=== PATIENT | male | born 1960 | race Caucasian/White ===

== ENCOUNTER 2018-04-24 11:41 | Inpatient (IN) | payer OTHER ==
[2018-04-24 12:22] VITALS: BMI 39.0
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
[2018-04-24] MEDS ORDERED: MAG HYDROX/AL HYDROX/SIMETH 30 ML UNIT-DOSE CUP PO PRN (13:58)
[2018-04-24] MEDS ORDERED: MAGNESIUM CITRATE 300 ML BOTTLE PO PRN (13:58)
[2018-04-24] MEDS ORDERED: MAGNESIUM HYDROX 2400MG/30ML ORAL SUSPENSION 30 ML CUP PO PRN (13:58)
[2018-04-24] MEDS ORDERED: P-EPHED 60MG/TRIPROLIDI 2.5MG TABLET PO PRN (13:58)
[2018-04-24] MEDS ORDERED: IBUPROFEN 400 MG TABLET (FP) PO PRN (13:58)
[2018-04-24] MEDS ORDERED: MENTHOL/PHENOL 1 EACH UD MM PRN (13:58)
[2018-04-24] MEDS ORDERED: guaiFENesin/D-METHORPHAN HB 10 ML UNIT-DOSE CUPS PO PRN (13:58)
[2018-04-24] MEDS ORDERED: LOPERAMIDE HCL 2 MG CAPSULE PO PRN (13:58)
[2018-04-24] MEDS ORDERED: ALBUTEROL SO4 8 GM HFA INHALER IH PRN (14:01)
[2018-04-24] MEDS ORDERED: chlordiazePOXIDE HCL 25 MG CAPSULE PO PRN (15:26)
[2018-04-24] MEDS: chlordiazePOXIDE HCL 25 MG CAPSULE PO SCH ×2 (17:10→22:09)
[2018-04-24] MEDS: ACETAMINOPHEN 325 MG TABLET (FP) PO PRN ×2 (17:17→22:11)
[2018-04-24] MEDS ORDERED: ALBUTEROL SO4 0.083% IH SOL 2.5 MG/3 ML VIAL.NEB. NEB PRN (19:45)
--- NOTE | 2018-04-24 20:35 | PN ---
[facility] Progress Note (SOAP) Subjective: received call in [facility] for above patient , per RN complaining of chest pain , VSS O2sat 97% on RA . EKG ordered . Upon arrival to patient's room, patient resting in bed , complains of shortness of breath with lying down , states has history of sleep apnea and was taking Seroquel and Gabapentin for sleep . MR reviewed- h/o asthma , HTN . Objective: O2 95% on RA , patient ambulating freely in hallway , no distress CV RRR S1S2 no m/r/t Resp : lungs CTA b/l n w/r/r , no accessory muscle use 04/24/18 20:31 Vital Signs - 24 hr 04/24/18 04/24/18 12:18 18:03 Temperature 97.7 F 98.2 F Pulse Rate 79 88 Respiratory 18 20 Rate Blood Pressure 149/85 156/86 EKG - NSR R 62 04/24/18 20:33 04/24/18 20:35 Plan: Albuterol nebulizer ordered and administered with good symptomatic relief, patient states he is feeling better, requesting sleeping meds : advised of prn Vistaril, scheduled to see psychiatry in the a.m. Advised pt to see RN for any further symptoms. Verbalizes understanding, agreeable w/ POC .
[2018-04-24] MEDS ORDERED: MELATONIN 5 MG TABLETS PO PRN (22:00)
[2018-04-24] MEDS: THIAMINE HCL 100 MG TABLET (FP) PO SCH (22:09)
[2018-04-25] MEDS: chlordiazePOXIDE HCL 25 MG CAPSULE PO SCH ×4 (06:52→22:04)
[2018-04-25] MEDS: PRENATAL VITAMINS W/ FOLIC ACID TABLET (FP) PO SCH (10:31)
[2018-04-25] MEDS: amLODIPine BESYLATE 5 MG TABLET (FP) PO SCH (10:31)
[2018-04-25 11:09] LABS: HEMATOCRIT 38.2 % (35.4-49); HEMOGLOBIN 13.6 GM/dL (11.7-16.9); MCH 30.5 pg (25.7-33.7); MCHC 35.5 g/dl (32.0-35.9); MEAN CELL VOLUME 85.9 fl (80-96); MEAN PLT VOLUME 9.4 fl (7.5-11.1); PLATELET COUNT 66 K/MM3 (134-434); RBC 4.44 M/mm3 (4.00-5.60); RDW 16.4 % (11.9-15.9); WHITE BLOOD COUNT 3.6 K/mm3 (4.0-10.0)
[2018-04-25] MEDS ORDERED: FLU VACCINE QUAD 60 MCG/0.5 ML (MDV 18-19) IM ONE (12:00)
[2018-04-25] MEDS ORDERED: PNEUMOC 13-VAL CONJ-DIP CRM/PF 0.5 ML DISP.SYRIN IM ONE (12:00)
[2018-04-25] MEDS ORDERED: PNEUMOCOCCAL 23 VACCINE 0.5 ML VIAL IM ONE (12:00)
--- NOTE | 2018-04-25 12:11 | PN ---
S CIWA - CIWA Score Nausea/Vomitin Muscle Tremors: 2 Anxiety: 3 Agitation: 2 Paroxysmal Sweats: 2 Orientation: 0-Oriented Tacttile Disturbances: 1-Very Mild Itch/Numbness Auditory Disturbances: 1-Very Mild Visual Disturbances: 0-None Headache: 1-Very Mild CIWA-Ar Total Score: 14 S Progress Note (SOAP) Subjective: Fatigue, interrupted sleep,epigastric pain and anxiety Objective: 04/25/18 12:08 Vital Signs 04/25/18 04/25/18 06:50 09:17 Temperature 97.5 F L 96.4 F L Pulse Rate 72 79 Respiratory 20 16 Rate Blood Pressure 146/95 158/89 Laboratory Last Values WBC 3.6 K/mm3 (4.0-10.0) L 04/25/18 05:35 RBC 4.44 M/mm3 (4.00-5.60) 04/25/18 05:35 Hgb 13.6 GM/dL (11.7-16.9) 04/25/18 05:35 Hct 38.2 % (35.4-49) 04/25/18 05:35 MCV 85.9 fl (80-96) 04/25/18 05:35 MCH 30.5 pg (25.7-33.7) 04/25/18 05:35 MCHC 35.5 g/dl (32.0-35.9) 04/25/18 05:35 RDW 16.4 % (11.9-15.9) H 04/25/18 05:35 Plt Count 66 K/MM3 (134-434) L 04/25/18 05:35 MPV 9.4 fl (7.5-11.1) 04/25/18 05:35 Manual Slide Review 04/25/18 05:35 Platelet Comment No clotting detected 04/25/18 05:35 RPR Titer Nonreactive (NONREACTIVE) 04/25/18 05:35 CBC pending, chemistry pending Had asthma exacerbation last night, occasional SOB r/t asthma Assessment: 04/25/18 12:10 Withdrawal sx Asthma with exacerbation Plan: Continue detox Continue nebulizer treatments
[2018-04-25 12:16] LABS: ALK PHOS 76 U/L (45-117); ANION GAP 12 MMOL/L (8-16); BILIRUBIN,TOTAL 1.4 mg/dL (0.2-1); BLOOD UREA NITROGEN 5 mg/dL (7-18); CHLORIDE 98 mmol/L (98-107); CO2 29 mmol/L (21-32); CREATININE 0.7 mg/dL (0.55-1.3); GLUCOSE,RANDOM 144 mg/dL (74-106); POTASSIUM 3.1 mmol/L (3.5-5.1); SGOT/AST 65 U/L (15-37); SGPT/ALT 41 U/L (13-61); SODIUM 139 mmol/L (136-145); TOT PROT 7.3 g/dl (6.4-8.2)
--- NOTE | 2018-04-25 13:29 | CONSULT ---
[facility] Psychiatric Consult - Data Date of interview: 04/25/18 Admission source: [facility] Identifying data: First admission to [facility] for this 57 y/o male seeking detoxification treatment on for alcohol dependence. Patient is single without dependents, homeless, unemployed and supported on SSI benefits. Substance Abuse History: Confirmed by the patient in this interview. Details in current [facility] report : Smoking history: Former smoker. Have you smoked in the past 12 months: No. Aproximately how many cigarettes per day: 0. If you are a former smoker, when did you quit?: 1997. Cigars Per Day: 0. Hx Chewing Tobacco Use: No. Initiated information on smoking cessation: Yes. 'Breaking Loose' booklet given: 04/24/18. - Substance & Tx. History. Hx Alcohol Use: Yes. Hx Substance Use: Yes. Substance Use Type: Alcohol. Hx Substance Use Treatment: Yes ([facility] ). - Substances Abused. Alcohol. Route: Oral. Frequency: Daily. Amount used: vodka 2 pts./day. Age of first use: 10. Date of Last Use: 04/23/18 Medical History: Arthritis (knees), hypertension, bronchial asthma and a history of withdrawal-related seizures. Psychiatric History: Patient endorses a history of multiple psychiatric hospitalizations ([facility]). Diagnosed with Bipolar Disorder and MDD with psychotic features (self-report). Mr Jackson declares maintenance treatment on a regimen of sertraline 100 mg/day + neurontin 600 mg/tid + prazosin 2m/hs + seroquel 400 mg/hs. NOT TAKEN for at least one month (patient' s own report). No Psychiatric OPD providers (refills issued by primary care provider). Patient is known to [facility] and [facility]. Admits to a history of suicide attempts via self-mutilation ( scars visible on forearms). Physical/Sexual Abuse/Trauma History: Patient denies. Additional Comment: Drug Screen is negative. 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 (4) Insomnia Current Visit: Yes Status: Acute (5) Non-compliant patient Current Visit: Yes Status: Chronic - Initial Treatment Plan Initial Treatment Plan: Psychoeducation. Detoxification. Sleep hygiene. AA meetings. Relapse prevention (measures) : naltrexone, acamprosate, 12 step groups, psychotherapy discussed with the patient. Support and reassurance provided. Medications reviewed. Pharmacy claims surveyed : refills issued on for seroquel 400 mg/hs + prazosin 2 mg/hs + zoloft 100 mg/day + gabapentin 600 mg/tid at the [facility] Regimen is modified as follows : seroquel 200 mg po hs (reduced) + zoloft 100 mg po daily. Prazosin and gabapentin held for now. Observe for oversedation. If no adverse events, seroquel is to be titrated and gabapentin + prazosin re-instated. Unit psychiatrist will follow.
[2018-04-25] MEDS: ACETAMINOPHEN 325 MG TABLET (FP) PO PRN ×2 (17:51→22:06)
--- NOTE | 2018-04-25 21:16 | EKG ---
Test Reason : Blood Pressure : / mmHG Vent. Rate : 062 BPM Atrial Rate : 062 BPM P-R Int : 166 ms QRS Dur : 094 ms QT Int : 416 ms P-R-T Axes : 017 -04 024 degrees QTc Int : 422 ms SINUS RHYTHM WITH FUSION COMPLEXES OTHERWISE NORMAL ECG NO PREVIOUS ECGS AVAILABLE Confirmed by JAIMIE MORA, AIMEE ([id number]) on 04/25/2018 9:15:38 PM Referred By: Confirmed By:AIMEE ETIENNE MD
[2018-04-25] MEDS: QUEtiapine FUMARATE 200 MG TABLET PO SCH (22:04)
[2018-04-25] MEDS: THIAMINE HCL 100 MG TABLET (FP) PO SCH (22:04)
[2018-04-26] MEDS: ACETAMINOPHEN 325 MG TABLET (FP) PO PRN ×3 (06:34→22:06)
[2018-04-26] MEDS: chlordiazePOXIDE HCL 25 MG CAPSULE PO SCH ×2 (06:34→10:41)
[2018-04-26] MEDS: PRENATAL VITAMINS W/ FOLIC ACID TABLET (FP) PO SCH (10:41)
[2018-04-26] MEDS: amLODIPine BESYLATE 5 MG TABLET (FP) PO SCH (10:41)
[2018-04-26] MEDS: SERTRALINE HCL 50 MG TABLET (FP) PO SCH (10:41)
--- NOTE | 2018-04-26 15:07 | PN ---
[facility] CIWA - CIWA Score Nausea/Vomitin-No Nausea/No Vomiting Muscle Tremors: 3 Anxiety: 1-Mildly Anxious Agitation: 3 Paroxysmal Sweats: 1-Minimal Palms Moist Orientation: 0-Oriented Tacttile Disturbances: 0-None Auditory Disturbances: 0-None Visual Disturbances: 0-None Headache: 2-Mild CIWA-Ar Total Score: 10 S Progress Note (SOAP) Subjective: tremor sweat restlessness requests to follow up with the psychiatrist that taking seroquel 400 mg daily at home Objective: 04/26/18 15:10 Vital Signs Temperature 97.9 F 04/26/18 09:49 Pulse Rate 83 04/26/18 09:49 Respiratory Rate 16 04/26/18 09:49 Blood Pressure 139/87 04/26/18 09:49 O2 Sat by Pulse Oximetry (%) Laboratory Last Values WBC 3.6 K/mm3 (4.0-10.0) L 04/25/18 05:35 RBC 4.44 M/mm3 (4.00-5.60) 04/25/18 05:35 Hgb 13.6 GM/dL (11.7-16.9) 04/25/18 05:35 Hct 38.2 % (35.4-49) 04/25/18 05:35 MCV 85.9 fl (80-96) 04/25/18 05:35 MCH 30.5 pg (25.7-33.7) 04/25/18 05:35 MCHC 35.5 g/dl (32.0-35.9) 04/25/18 05:35 RDW 16.4 % (11.9-15.9) H 04/25/18 05:35 Plt Count 66 K/MM3 (134-434) L 04/25/18 05:35 MPV 9.4 fl (7.5-11.1) 04/25/18 05:35 Manual Slide Review 04/25/18 05:35 Platelet Comment No clotting detected 04/25/18 05:35 Sodium 139 mmol/L (136-145) 04/25/18 05:35 Potassium 3.1 mmol/L (3.5-5.1) L 04/25/18 05:35 Chloride 98 mmol/L (98-107) 04/25/18 05:35 Carbon Dioxide 29 mmol/L (21-32) 04/25/18 05:35 Anion Gap 12 MMOL/L (8-16) 04/25/18 05:35 BUN 5 mg/dL (7-18) L 04/25/18 05:35 Creatinine 0.7 mg/dL (0.55-1.3) 04/25/18 05:35 Creat Clearance w eGFR > 60 (>60) 04/25/18 05:35 Random Glucose 144 mg/dL (74-106) H 04/25/18 05:35 Calcium 8.0 mg/dL (8.5-10.1) L 04/25/18 05:35 Total Bilirubin 1.4 mg/dL (0.2-1) H 04/25/18 05:35 AST 65 U/L (15-37) H 04/25/18 05:35 ALT 41 U/L (13-61) 04/25/18 05:35 Alkaline Phosphatase 76 U/L (45-117) 04/25/18 05:35 Total Protein 7.3 g/dl (6.4-8.2) 04/25/18 05:35 Albumin 4.0 g/dl (3.4-5.0) 04/25/18 05:35 RPR Titer Nonreactive (NONREACTIVE) 04/25/18 05:35 lab noted low K+ low Platellet Assessment: 04/26/18 15:13 withdrawal sx hypokalemia low platellet Plan: continue detox potassium supplement d/c motrim
[2018-04-26] MEDS: chlordiazePOXIDE 5 MG CAPSULE PO SCH ×2 (17:38→22:06)
[2018-04-26] MEDS: POTASSIUM CHLORIDE ORAL LIQUID 20 MEQ/15 ML PO SCH ×2 (17:38→22:05)
[2018-04-26] MEDS: THIAMINE HCL 100 MG TABLET (FP) PO SCH (22:05)
[2018-04-26] MEDS: QUEtiapine FUMARATE 200 MG TABLET PO SCH (22:06)
[2018-04-27] MEDS: chlordiazePOXIDE 5 MG CAPSULE PO SCH ×2 (06:56→10:17)
[2018-04-27] MEDS: ACETAMINOPHEN 325 MG TABLET (FP) PO PRN ×3 (06:58→22:55)
--- NOTE | 2018-04-27 10:14 | PN ---
[facility] Progress Note (SOAP) Subjective: itchy dry skin between my thighs sweats anxiety Objective: 04/27/18 10:14 Vital Signs Temperature 98.0 F 04/27/18 09:38 Pulse Rate 95 H 04/27/18 09:38 Respiratory Rate 18 04/27/18 09:38 Blood Pressure 146/88 04/27/18 09:38 O2 Sat by Pulse Oximetry (%) aaox3 ambulating no acute distress Assessment: 04/27/18 10:15 mild withdrawal Plan: continue detox increase fluids psych ordered for revisit of his medication ABX ointment ordered d/c in am
[2018-04-27] MEDS: PRENATAL VITAMINS W/ FOLIC ACID TABLET (FP) PO SCH (10:16)
[2018-04-27] MEDS: SERTRALINE HCL 50 MG TABLET (FP) PO SCH (10:16)
[2018-04-27] MEDS: amLODIPine BESYLATE 5 MG TABLET (FP) PO SCH (10:17)
[2018-04-27] MEDS: TRIAMCINOLONE ACET 0.1% OINT 15 GM TUBE TP SCH ×4 (10:54→22:52)
[2018-04-27] MEDS: POTASSIUM CHLORIDE ORAL LIQUID 20 MEQ/15 ML PO SCH ×2 (10:55→22:22)
[2018-04-27] MEDS: GABAPENTIN 300 MG CAPSULE (FP) PO SCH ×2 (13:37→22:16)
--- NOTE | 2018-04-27 14:41 | PN ---
Psychiatric Progress Note Vital Signs: Vital Signs Period Temp Pulse Resp BP Sys/Sloan Pulse Ox Last 24 Hr 96.5 F-98.6 F 83-95 16-18 113-146/65-91 Date of Session: 04/27/18 Chief Complaint:: My medications HPI: Patient reports taking prior to admission: Seroquel 400mg po qhs. Zoloft 100mg poqd. Prazosin 2mg po qhs. Patient askinng to satrt his preadmission dosages. Current Medications: Active Medications Generic Name Dose Route Start Last Admin Trade Name Freq PRN Reason Stop Dose Admin Acetaminophen 650 mg 04/24/18 13:58 04/27/18 06:58 Tylenol - PO 650 mg Q4H PRN Administration FEVER Al Hydroxide/Mg Hydroxide 30 ml 04/24/18 13:58 04/24/18 20:25 Mylanta Oral Suspension - PO 30 ml Q6H PRN Administration DYSPEPSIA Albuterol Sulfate 2 puff 04/24/18 14:01 Ventolin Hfa Inhaler - IH Q4H PRN ASTHMA Albuterol Sulfate 1 amp 04/24/18 19:45 04/25/18 09:22 Ventolin 0.083% Nebulizer Soln - NEB 1 amp Q4H PRN Administration SHORT OF BREATH/WHEEZING Amlodipine Besylate 5 mg 04/25/18 10:00 04/27/18 10:17 Norvasc - PO 5 mg DAILY ELVIA Administration Chlordiazepoxide HCl 25 mg 04/24/18 15:26 04/25/18 03:28 Librium - PO 04/27/18 15:25 25 mg Q4H PRN Administration WITHDRAWAL(CONT SUBST) Chlordiazepoxide HCl 10 mg 04/27/18 17:00 Librium - PO 04/28/18 11:01 [id number] ELVIA Eucalyptus/Menthol/Phenol/Sorbitol 1 each 04/24/18 13:58 Cepastat Lozenge - MM Q4H PRN SORE THROAT Gabapentin 600 mg 04/27/18 14:00 04/27/18 13:37 Neurontin - PO 600 mg TID ELVIA Administration Guaifenesin 10 ml 04/24/18 13:58 Robitussin Dm - PO Q6H PRN COUGH Loperamide HCl 4 mg 04/24/18 13:58 Imodium - PO Q6H PRN DIARRHEA Magnesium Citrate 300 ml 04/24/18 13:58 Citroma - PO Q48H PRN CONSTIPATION Magnesium Hydroxide 30 ml 04/24/18 13:58 Milk Of Magnesia - PO DAILY PRN CONSTIPATION Melatonin 5 mg 04/24/18 22:00 Melatonin PO HS PRN INSOMNIA Potassium Chloride 40 meq 04/26/18 16:30 04/27/18 10:55 Potassium Chloride Oral Liquid PO 40 meq BID ELVIA Administration Multivit/Folic Acid/Iron 1 tab 04/25/18 10:00 04/27/18 10:16 Vitamins (Sjr) - PO 1 tab DAILY ELVIA Administration Pseudoephedrine/Triprolidine 1 combo 04/24/18 13:58 Actifed - PO TID PRN NASAL CONGESTION Quetiapine Fumarate 200 mg 04/25/18 22:00 04/26/18 22:06 Seroquel - PO 200 mg HS ELVIA Administration Sertraline HCl 100 mg 04/26/18 10:00 04/27/18 10:16 Zoloft - PO 100 mg DAILY ELVIA Administration Thiamine HCl 100 mg 04/24/18 22:00 04/26/18 22:05 Vitamin B1 - PO 100 mg HS ELVIA Administration Triamcinolone Acetonide 1 applic 04/27/18 10:00 04/27/18 13:38 Aristocort 0.1% Ointment - TP 1 applic QID ELVIA Administration Medication(s) Change(s): Seroquel 300mg po qhs. Zoloft 100mg poqd. Prazosin 2mg po qhs Mental Status Exam - Mental Status Exam Alert and Oriented to: Person Cognitive Function: Fair Patient Appearance: Unkempt Mood: Anxious Affect: Mood Congruent Patient Behavior: Cooperative Speech Pattern: Appropriate Voice Loudness: Mildly Soft/Quiet Thought Process: Circumstantial, Goal Oriented Thought Disorder: Being Controlled Hallucinations: Denies Suicidal Ideation: Denies Homicidal Ideation: Denies Insight/Judgement: Fair Sleep: Difficulty falling asleep Appetite: Weight gain Muscle strength/Tone: Mild Hypotonicity Gait/Station: Shuffling Additional Comments: Seroquel 300mg po qhs. Zoloft 100mg poqd. Prazosin 2mg po qhs Psychiatric Treatment Plan - Problem List (1) HTN (hypertension) Current Visit: Yes Qualifiers: Hypertension type: essential hypertension Qualified Code(s): I10 - Essential (primary) hypertension (2) Right knee pain Current Visit: Yes Qualifiers: Chronicity: acute Qualified Code(s): M25.561 - Pain in right knee (3) Substance induced mood disorder Current Visit: Yes (4) Uncomplicated alcohol withdrawal Current Visit: Yes (5) Asthma Current Visit: Yes Qualifiers: Asthma severity: mild Asthma persistence: intermittent Asthma complication type: with acute exacerbation Qualified Code(s): J45.21 - Mild intermittent asthma with (acute) exacerbation (6) Bipolar disorder Current Visit: Yes Comment: Reported by the patient. (7) Chronic alcoholism Current Visit: Yes (8) Obesity Current Visit: Yes Qualifiers: Obesity type: due to excess calories Body mass index: unspecified BMI (9) Schizophrenia Current Visit: Yes Qualifiers: Schizophrenia type: unspecified Qualified Code(s): F20.9 - Schizophrenia, unspecified (10) Withdrawal seizures Current Visit: Yes Initial treatment plan: Seroquel 300mg po qhs. Zoloft 100mg poqd. Prazosin 2mg po qhs
[2018-04-27] MEDS: chlordiazePOXIDE HCL 10 MG CAPSULE PO SCH ×2 (17:30→22:17)
[2018-04-27] MEDS ORDERED: QUEtiapine FUMARATE 300 MG TABLET PO SCH (22:00)
[2018-04-27] MEDS ORDERED: PRAZOSIN HCL 1 MG CAPSULE PO SCH (22:00)
[2018-04-27] MEDS: THIAMINE HCL 100 MG TABLET (FP) PO SCH (22:24)
[2018-04-28] MEDS: GABAPENTIN 300 MG CAPSULE (FP) PO SCH ×2 (05:44→15:02)
[2018-04-28] MEDS: chlordiazePOXIDE HCL 10 MG CAPSULE PO SCH ×2 (05:44→10:29)
[2018-04-28 09:52] VITALS: BP 138/87; PULSE 91; TEMP 98.8
[2018-04-28] MEDS: amLODIPine BESYLATE 5 MG TABLET (FP) PO SCH (10:28)
[2018-04-28] MEDS: SERTRALINE HCL 50 MG TABLET (FP) PO SCH (10:28)
[2018-04-28] MEDS: PRENATAL VITAMINS W/ FOLIC ACID TABLET (FP) PO SCH (10:28)
[2018-04-28] MEDS: POTASSIUM CHLORIDE ORAL LIQUID 20 MEQ/15 ML PO SCH (10:29)
[2018-04-28] MEDS: TRIAMCINOLONE ACET 0.1% OINT 15 GM TUBE TP SCH ×2 (10:30→15:03)
--- NOTE | 2018-04-28 12:39 | DS ---
[facility] Detox Discharge Summary Admission Date: 04/24/18 Discharge Date: 04/28/18 - History Present History: Alcohol Dependence - Physical Exam Results Vital Signs: Vital Signs Temperature 98.8 F 04/28/18 09:52 Pulse Rate 91 H 04/28/18 09:52 Respiratory Rate 18 04/28/18 09:52 Blood Pressure 138/87 04/28/18 09:52 O2 Sat by Pulse Oximetry (%) - Treatment Hospital Course: Detox Protocol Followed, Detoxed Safely, Responded well, Discharged Condition Good, Rehab Referral Accepted - Medication Discharge Medications: Ambulatory Orders Albuterol Sulfate [Proventil HFA Inhaler -] 1 - 2 inh PO QID 04/24/18 Amlodipine Besylate 5 mg PO DAILY 04/24/18 Gabapentin [Neurontin] 600 mg PO TID 04/24/18 Prazosin HCl [Minipress] 2 mg PO HS 04/24/18 Quetiapine Fumarate [Seroquel -] 400 mg PO HS 04/24/18 Quetiapine Fumarate [Seroquel] 100 mg PO DAILY 04/24/18 Prazosin HCl [Minipress -] 2 mg PO HS #30 capsule 04/27/18 Quetiapine Fumarate [Seroquel -] 300 mg PO HS #30 tablet 04/27/18 Sertraline HCl [Zoloft] 100 mg PO DAILY #30 tablet 04/27/18 - Diagnosis (1) HTN (hypertension) Current Visit: Yes Status: Chronic Qualifiers: Hypertension type: essential hypertension Qualified Code(s): I10 - Essential (primary) hypertension (2) Insomnia Current Visit: Yes Status: Acute (3) Right knee pain Current Visit: Yes Status: Chronic Qualifiers: Chronicity: chronic Qualified Code(s): M25.561 - Pain in right knee; G89.29 - Other chronic pain (4) Substance induced mood disorder Current Visit: Yes Status: Acute (5) Uncomplicated alcohol withdrawal Current Visit: Yes Status: Chronic (6) Asthma Current Visit: Yes Status: Chronic Qualifiers: Asthma severity: mild Asthma persistence: intermittent Asthma complication type: with acute exacerbation Qualified Code(s): J45.21 - Mild intermittent asthma with (acute) exacerbation (7) Bipolar disorder Current Visit: Yes Status: Chronic (8) Non-compliant patient Current Visit: Yes Status: Chronic (9) Obesity Current Visit: Yes Status: Chronic Qualifiers: Obesity type: due to excess calories Body mass index: unspecified BMI (10) Schizophrenia Current Visit: Yes Status: Chronic Qualifiers: Schizophrenia type: unspecified Qualified Code(s): F20.9 - Schizophrenia, unspecified (11) Withdrawal seizures Current Visit: Yes Status: Suspected - AMA Did Patient Leave Against Medical Advice: No (referred to inpatient rehab)
== END 2018-04-28 03:16 | disposition other institution (70) | DRG 775 ==
LOC: YASAS 11:41 → Y6N 14:50
PROC: HZ2ZZZZ Detoxification Services for Substance Abuse Treatment (ICD-10-PCS; principal; 2018-04-24)
DX: F10.230 Alcohol dependence with withdrawal, uncomplicated (principal); F31.9 Bipolar disorder, unspecified; F19.24 Other psychoactive substance dependence with psychoactive substance-induced mood disorder; F20.9 Schizophrenia, unspecified; E87.6 Hypokalemia; I10 Essential (primary) hypertension; J45.21 Mild intermittent asthma with (acute) exacerbation; G47.00 Insomnia, unspecified; G40.509 Epileptic seizures related to external causes, not intractable, without status epilepticus; E66.09 Other obesity due to excess calories; Z68.39 Body mass index [BMI] 39.0-39.9, adult; Z88.6 Allergy status to analgesic agent; Z91.5 Personal history of self-harm; Z91.19 Patient's noncompliance with other medical treatment and regimen
CPT/HCPCS: 36415; 80053; 84132; 85027; 86593; 93005; 93010; 94640

== ENCOUNTER 2018-04-28 15:24 | Inpatient (IN) | payer OTHER ==
--- NOTE | 2018-04-28 16:08 | HP ---
Psychiatrist Admission - Data Date of interview: 04/28/18 Admission source: Transfer from [address] [place] [address] Identifying data: First admission to [address] for this 57 y/o male who completed detoxification treatment on [address] [place] [address]. Issues : alcohol dependence co-morbid with Bipolar Disorder. Patient is single without dependents, homeless, unemployed and supported on SSI benefits. Medical History: Arthritis (knees), hypertension, liver problems (cirrhosis), bronchial asthma and a history of withdrawal-related seizures. Psychiatric History: History taken from patient on admission to [address] [place] [address] on . No changes since that encounter : history of multiple psychiatric hospitalizations ([facility]). Diagnosed with Bipolar Disorder and MDD with psychotic features (self-report). Mr Renetta declares maintenance treatment on a regimen of sertraline 100 mg/day + neurontin 600 mg/tid + prazosin 2m/hs + seroquel 400 mg/hs. NOT TAKEN for at least one month (patient' s own report). No Psychiatric OPD providers (refills issued by primary care provider). Patient is known to [address], [facility] and [facility]. Admits to a history of suicide attempts via self-mutilation ( scars visible on forearms). Physical/Sexual Abuse/Trauma History: Patient denies. Additional Comment: Profile of substance abuse. As follows : Smoking history: Former smoker. Have you smoked in the past 12 months: No. Aproximately how many cigarettes per day: 0. If you are a former smoker, when did you quit?: 1997. Cigars Per Day: 0. Hx Chewing Tobacco Use: No. Initiated information on smoking cessation: Yes. 'Breaking Loose' booklet given: 04/24/18. - Substance & Tx. History. Hx Alcohol Use: Yes. Hx Substance Use: Yes. Substance Use Type: Alcohol. Hx Substance Use Treatment: Yes ([facility] ). - Substances Abused. Alcohol. Route: Oral. Frequency: Daily. Amount used : vodka 2 pts./day. Age of first use: 10. Date of Last Use: 04/23/18. Drug Screen is negative on admission to [address] [place] [address] (04/25/18). Allergies/Adverse Reactions: Allergies Allergy/AdvReac Type Severity Reaction Status Date / Time aspirin AdvReac Intermediate Nausea Verified 04/24/18 13:51 - Substance Abuse/Tx History Hx Alcohol Use: Yes (since age 10) Hx Substance Use: Yes Substance Use Type: Alcohol (consumes 2 pints of vodka daily) Hx Substance Use Treatment: Yes (in [facility] Mental Status Exam - Mental Status Exam Alert and Oriented to: Time, Place, Person Cognitive Function: Grossly Intact Patient Appearance: Well Groomed (obese, edentulous) Mood: Anxious, Apprehensive Affect: Mood Congruent, Constricted Patient Behavior: Appropriate, Cooperative Speech Pattern: Clear (in lao) Voice Loudness: Normal Thought Process: Goal Oriented Thought Disorder: Not Present Hallucinations: Denies Suicidal Ideation: Denies Homicidal Ideation: Denies Insight/Judgement: Poor Sleep: Fair Muscle strength/Tone: Normal Gait/Station: Normal Psychiatric Findings - Problem List ([place] 1, 2,3) (1) Alcohol dependence Current Visit: Yes Status: Chronic (2) Substance induced mood disorder Current Visit: Yes Status: Suspected (3) Bipolar disorder Current Visit: No Status: Chronic Comment: Reported by the patient. (4) Insomnia Current Visit: Yes Status: Chronic - Initial Treatment Plan Initial Treatment Plan: Psychoeducation. Sleep hygiene. Support + reassurance. AA meetings. Group and individual psychotherapy. Motivational sessions. Continue discussion of naltrexone and vivitrol with the patient. Resume medications (already started on ) : seroquel 300 mg pom hs + prazosin 2 mg po hs + zoloft 100 mg po daily. Side effects/benefits of each drug are discussed with the patient. Mr Jackson is agreeable with this plan of care. Consent (verbal) granted to MD. Chin.
[2018-04-28] MEDS: QUEtiapine FUMARATE 300 MG TABLET PO SCH (21:05)
[2018-04-28] MEDS: PRAZOSIN HCL 1 MG CAPSULE PO SCH (21:06)
--- NOTE | 2018-04-28 21:37 | HP ---
VICKY MORA Rehab Assess/Revision - Admission History Admitted to Rehab from: [facility] [address] [place] - Vital signs Vital Signs: Vital Signs Period Temp Pulse Resp BP Sys/Sloan Pulse Ox Last 24 Hr 93-97 150-156/88-104 - Findings Detox History & Physical reviewed: Yes Concur with findings: Yes Inpatient Rehab Admission - Initial Determination Are CD services needed?: Yes Free of communicable disease: Yes Not in need of hospitalization: Yes - Rehab Admission Criteria Previous failed treatment: Yes Poor recovery environment: Yes Comorbidities: Yes Lacks judgement: No Patient is meeting Inpatient Rehab admission criteria:: Yes (alcohol use disorder)
[2018-04-28] MEDS ORDERED: guaiFENesin/D-METHORPHAN HB 10 ML UNIT-DOSE CUPS PO PRN (21:41)
[2018-04-28] MEDS ORDERED: MAGNESIUM CITRATE 300 ML BOTTLE PO PRN (21:41)
[2018-04-28] MEDS ORDERED: P-EPHED 60MG/TRIPROLIDI 2.5MG TABLET PO PRN (21:41)
[2018-04-28] MEDS ORDERED: MAGNESIUM HYDROX 2400MG/30ML ORAL SUSPENSION 30 ML CUP PO PRN (21:41)
[2018-04-28] MEDS ORDERED: MENTHOL/PHENOL 1 EACH UD MM PRN (21:41)
[2018-04-28] MEDS ORDERED: MAG HYDROX/AL HYDROX/SIMETH 30 ML UNIT-DOSE CUP PO PRN (21:41)
[2018-04-28] MEDS ORDERED: MELATONIN 5 MG TABLETS PO PRN (22:00)
[2018-04-28] MEDS: GABAPENTIN 300 MG CAPSULE (FP) PO SCH (22:25)
[2018-04-28] MEDS: THIAMINE HCL 100 MG TABLET (FP) PO SCH (22:25)
[2018-04-29] MEDS: GABAPENTIN 300 MG CAPSULE (FP) PO SCH ×3 (07:14→21:03)
[2018-04-29] MEDS: PRENATAL VITAMINS W/ FOLIC ACID TABLET (FP) PO SCH (09:50)
[2018-04-29] MEDS: IBUPROFEN 400 MG TABLET (FP) PO PRN (09:50)
[2018-04-29] MEDS: SERTRALINE HCL 50 MG TABLET (FP) PO SCH (09:50)
[2018-04-29] MEDS: POTASSIUM CHLORIDE TABS 20 MEQ TABLET.ER (FP) PO SCH (09:50)
[2018-04-29] MEDS: amLODIPine BESYLATE 5 MG TABLET (FP) PO SCH (09:50)
[2018-04-29] MEDS: ALBUTEROL SO4 8 GM HFA INHALER IH PRN (09:53)
[2018-04-29] MEDS: CYANOCOBALAMIN 1,000 MCG TABLET (FP) PO SCH (11:30)
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
[2018-04-29] MEDS: THIAMINE HCL 100 MG TABLET (FP) PO SCH (21:02)
[2018-04-29] MEDS: QUEtiapine FUMARATE 300 MG TABLET PO SCH (21:02)
[2018-04-29] MEDS: PRAZOSIN HCL 1 MG CAPSULE PO SCH (21:05)
[2018-04-29] MEDS: ACETAMINOPHEN 325 MG TABLET (FP) PO PRN (21:05)
[2018-04-29] MEDS: CLOTRIMAZOLE/BETAMET DIPROP 15 GM TUBE TP SCH (21:09)
[2018-04-29] MEDS: HYDROCORTISONE 2.5% TOPICAL CREAM 30 GM TUBE PR SCH (22:07)
[2018-04-30] MEDS: GABAPENTIN 300 MG CAPSULE (FP) PO SCH ×3 (07:03→21:15)
[2018-04-30] MEDS: POTASSIUM CHLORIDE TABS 20 MEQ TABLET.ER (FP) PO SCH (09:59)
[2018-04-30] MEDS: PRENATAL VITAMINS W/ FOLIC ACID TABLET (FP) PO SCH (09:59)
[2018-04-30] MEDS: SERTRALINE HCL 50 MG TABLET (FP) PO SCH (09:59)
[2018-04-30] MEDS: amLODIPine BESYLATE 5 MG TABLET (FP) PO SCH (09:59)
[2018-04-30] MEDS: CLOTRIMAZOLE/BETAMET DIPROP 15 GM TUBE TP SCH ×2 (10:00→21:18)
[2018-04-30] MEDS: CYANOCOBALAMIN 1,000 MCG TABLET (FP) PO SCH (10:00)
[2018-04-30] MEDS: ACETAMINOPHEN 325 MG TABLET (FP) PO PRN (10:02)
--- NOTE | 2018-04-30 13:52 | PN ---
VICKY Progress Note Note: Psychiatric nurse practitioner: Chart reviewed. Dr. Macdonald note read and appreciated. Patient with a history of alcohol dependence co-morbid Bipolar disorder. Patient's current psychotropic medications are: Zoloft 100mg + prazosin 2mg HS + Seroquel 300mg HS. Patient is prescribed seroquel 400mg by his outpatient psychiatrist. Pharmacy claims reviewed. A 30 day prescription of Seroquel 400mg was electronically sent to patient's pharmacy on 04/16/18. Patient accepting seroquel 300mg without adverse effects and is requesting to be managed on Seroquel 400mg. Will increase Seroquel to 400mg. Verbal consent given. Benefits and side effects discussed. Patient reports stable mood. No psychosis, manic, or depressive symptoms noted.
[2018-04-30] MEDS: LOPERAMIDE HCL 2 MG CAPSULE PO PRN (16:40)
[2018-04-30] MEDS: PRAZOSIN HCL 1 MG CAPSULE PO SCH (21:15)
[2018-04-30] MEDS: HYDROCORTISONE 2.5% TOPICAL CREAM 30 GM TUBE PR SCH (21:16)
[2018-04-30] MEDS: THIAMINE HCL 100 MG TABLET (FP) PO SCH (21:16)
[2018-04-30] MEDS: QUEtiapine FUMARATE 400 MG TABLET PO SCH (21:18)
[2018-05-01] MEDS: GABAPENTIN 300 MG CAPSULE (FP) PO SCH ×3 (06:25→21:08)
[2018-05-01] MEDS: ACETAMINOPHEN 325 MG TABLET (FP) PO PRN ×2 (06:26→21:10)
[2018-05-01] MEDS ORDERED: ALBUTEROL SO4 0.083% IH SOL 2.5 MG/3 ML VIAL.NEB. NEB ONE (08:58)
[2018-05-01] MEDS: POTASSIUM CHLORIDE TABS 20 MEQ TABLET.ER (FP) PO SCH (10:02)
[2018-05-01] MEDS: amLODIPine BESYLATE 5 MG TABLET (FP) PO SCH (10:03)
[2018-05-01] MEDS: SERTRALINE HCL 50 MG TABLET (FP) PO SCH (10:03)
[2018-05-01] MEDS: PRENATAL VITAMINS W/ FOLIC ACID TABLET (FP) PO SCH (10:04)
[2018-05-01] MEDS: CLOTRIMAZOLE/BETAMET DIPROP 15 GM TUBE TP SCH ×2 (10:04→21:35)
[2018-05-01] MEDS: CYANOCOBALAMIN 1,000 MCG TABLET (FP) PO SCH (10:08)
[2018-05-01] MEDS: ALBUTEROL SO4 8 GM HFA INHALER IH PRN (16:26)
[2018-05-01] MEDS: QUEtiapine FUMARATE 400 MG TABLET PO SCH (21:08)
[2018-05-01] MEDS: PRAZOSIN HCL 1 MG CAPSULE PO SCH (21:08)
[2018-05-01] MEDS: THIAMINE HCL 100 MG TABLET (FP) PO SCH (21:08)
[2018-05-01] MEDS: HYDROCORTISONE 2.5% TOPICAL CREAM 30 GM TUBE PR SCH (21:09)
[2018-05-02] MEDS: GABAPENTIN 300 MG CAPSULE (FP) PO SCH ×3 (06:13→21:12)
[2018-05-02] MEDS: IBUPROFEN 400 MG TABLET (FP) PO PRN ×2 (06:15→21:15)
[2018-05-02] MEDS: amLODIPine BESYLATE 5 MG TABLET (FP) PO SCH (09:41)
[2018-05-02] MEDS: SERTRALINE HCL 50 MG TABLET (FP) PO SCH (09:41)
[2018-05-02] MEDS: POTASSIUM CHLORIDE TABS 20 MEQ TABLET.ER (FP) PO SCH (09:41)
[2018-05-02] MEDS: PRENATAL VITAMINS W/ FOLIC ACID TABLET (FP) PO SCH (09:41)
[2018-05-02] MEDS: CYANOCOBALAMIN 1,000 MCG TABLET (FP) PO SCH (09:42)
[2018-05-02] MEDS: CLOTRIMAZOLE/BETAMET DIPROP 15 GM TUBE TP SCH ×2 (09:43→21:14)
[2018-05-02] MEDS: PRAZOSIN HCL 1 MG CAPSULE PO SCH (21:12)
[2018-05-02] MEDS: QUEtiapine FUMARATE 400 MG TABLET PO SCH (21:12)
[2018-05-02] MEDS: THIAMINE HCL 100 MG TABLET (FP) PO SCH (21:13)
[2018-05-02] MEDS: HYDROCORTISONE 2.5% TOPICAL CREAM 30 GM TUBE PR SCH (21:13)
[2018-05-03] MEDS: GABAPENTIN 300 MG CAPSULE (FP) PO SCH ×3 (06:32→21:06)
[2018-05-03] MEDS: ACETAMINOPHEN 325 MG TABLET (FP) PO PRN ×2 (06:33→21:08)
[2018-05-03] MEDS: POTASSIUM CHLORIDE TABS 20 MEQ TABLET.ER (FP) PO SCH (09:50)
[2018-05-03] MEDS: SERTRALINE HCL 50 MG TABLET (FP) PO SCH (09:50)
[2018-05-03] MEDS: amLODIPine BESYLATE 5 MG TABLET (FP) PO SCH (09:50)
[2018-05-03] MEDS: PRENATAL VITAMINS W/ FOLIC ACID TABLET (FP) PO SCH (09:50)
[2018-05-03] MEDS: CYANOCOBALAMIN 1,000 MCG TABLET (FP) PO SCH (09:51)
[2018-05-03] MEDS: IBUPROFEN 400 MG TABLET (FP) PO PRN (09:52)
[2018-05-03] MEDS: CLOTRIMAZOLE/BETAMET DIPROP 15 GM TUBE TP SCH ×2 (09:53→21:10)
[2018-05-03] MEDS: QUEtiapine FUMARATE 400 MG TABLET PO SCH (21:06)
[2018-05-03] MEDS: PRAZOSIN HCL 1 MG CAPSULE PO SCH (21:07)
[2018-05-03] MEDS: THIAMINE HCL 100 MG TABLET (FP) PO SCH (21:07)
[2018-05-03] MEDS: HYDROCORTISONE 2.5% TOPICAL CREAM 30 GM TUBE PR SCH (21:10)
[2018-05-04] MEDS: GABAPENTIN 300 MG CAPSULE (FP) PO SCH ×3 (06:24→21:11)
[2018-05-04] MEDS: ALBUTEROL SO4 8 GM HFA INHALER IH PRN (09:58)
[2018-05-04] MEDS: amLODIPine BESYLATE 5 MG TABLET (FP) PO SCH (09:58)
[2018-05-04] MEDS: PRENATAL VITAMINS W/ FOLIC ACID TABLET (FP) PO SCH (09:58)
[2018-05-04] MEDS: SERTRALINE HCL 50 MG TABLET (FP) PO SCH (09:58)
[2018-05-04] MEDS: CYANOCOBALAMIN 1,000 MCG TABLET (FP) PO SCH (09:58)
[2018-05-04] MEDS: POTASSIUM CHLORIDE TABS 20 MEQ TABLET.ER (FP) PO SCH (09:59)
[2018-05-04] MEDS: CLOTRIMAZOLE/BETAMET DIPROP 15 GM TUBE TP SCH ×2 (10:00→21:27)
[2018-05-04] MEDS: ACETAMINOPHEN 325 MG TABLET (FP) PO PRN ×2 (10:01→21:13)
[2018-05-04] MEDS: THIAMINE HCL 100 MG TABLET (FP) PO SCH (21:11)
[2018-05-04] MEDS: PRAZOSIN HCL 1 MG CAPSULE PO SCH (21:11)
[2018-05-04] MEDS: QUEtiapine FUMARATE 400 MG TABLET PO SCH (21:11)
[2018-05-04] MEDS: HYDROCORTISONE 2.5% TOPICAL CREAM 30 GM TUBE PR SCH (21:22)
[2018-05-05] MEDS: IBUPROFEN 400 MG TABLET (FP) PO PRN ×2 (06:14→21:13)
[2018-05-05] MEDS: GABAPENTIN 300 MG CAPSULE (FP) PO SCH ×3 (06:14→21:11)
[2018-05-05] MEDS: POTASSIUM CHLORIDE TABS 20 MEQ TABLET.ER (FP) PO SCH (09:07)
[2018-05-05] MEDS: SERTRALINE HCL 50 MG TABLET (FP) PO SCH (09:07)
[2018-05-05] MEDS: PRENATAL VITAMINS W/ FOLIC ACID TABLET (FP) PO SCH (09:07)
[2018-05-05] MEDS: amLODIPine BESYLATE 5 MG TABLET (FP) PO SCH (09:07)
[2018-05-05] MEDS: CYANOCOBALAMIN 1,000 MCG TABLET (FP) PO SCH (09:08)
[2018-05-05] MEDS: ACETAMINOPHEN 325 MG TABLET (FP) PO PRN (09:09)
[2018-05-05] MEDS: CLOTRIMAZOLE/BETAMET DIPROP 15 GM TUBE TP SCH ×2 (09:10→21:25)
[2018-05-05] MEDS: QUEtiapine FUMARATE 400 MG TABLET PO SCH (21:11)
[2018-05-05] MEDS: THIAMINE HCL 100 MG TABLET (FP) PO SCH (21:11)
[2018-05-05] MEDS: PRAZOSIN HCL 1 MG CAPSULE PO SCH (21:12)
[2018-05-05] MEDS: ALBUTEROL SO4 8 GM HFA INHALER IH PRN (21:12)
[2018-05-05] MEDS: HYDROCORTISONE 2.5% TOPICAL CREAM 30 GM TUBE PR SCH (21:14)
[2018-05-06] MEDS: GABAPENTIN 300 MG CAPSULE (FP) PO SCH ×3 (06:09→21:07)
[2018-05-06] MEDS: amLODIPine BESYLATE 5 MG TABLET (FP) PO SCH (10:11)
[2018-05-06] MEDS: SERTRALINE HCL 50 MG TABLET (FP) PO SCH (10:11)
[2018-05-06] MEDS: POTASSIUM CHLORIDE TABS 20 MEQ TABLET.ER (FP) PO SCH (10:11)
[2018-05-06] MEDS: PRENATAL VITAMINS W/ FOLIC ACID TABLET (FP) PO SCH (10:11)
[2018-05-06] MEDS: ACETAMINOPHEN 325 MG TABLET (FP) PO PRN ×2 (10:12→21:09)
[2018-05-06] MEDS: CYANOCOBALAMIN 1,000 MCG TABLET (FP) PO SCH (10:13)
[2018-05-06] MEDS: CLOTRIMAZOLE/BETAMET DIPROP 15 GM TUBE TP SCH ×2 (10:14→22:24)
--- NOTE | 2018-05-06 10:34 | PN ---
Psychiatric Progress Note Vital Signs: Vital Signs Period Temp Pulse Resp BP Sys/Sloan Pulse Ox Last 24 Hr 97.7 F 71-73 -18 125-133/68-69 Date of Session: 05/06/18 Chief Complaint:: Discharge Note HPI: Patient addressing Alcohol Dependence comorbid with BipolarDisorder, Alcohol-Induced Mood Disorder and Alcohol-Induced Sleep Disorder Current Medications: Active Medications Generic Name Dose Route Start Last Admin Trade Name Freq PRN Reason Stop Dose Admin Acetaminophen 650 mg 04/28/18 21:41 05/06/18 10:12 Tylenol - PO 650 mg Q4H PRN Administration FEVER Al Hydroxide/Mg Hydroxide 30 ml 04/28/18 21:41 05/02/18 11:42 Mylanta Oral Suspension - PO 30 ml Q6H PRN Administration DYSPEPSIA Albuterol Sulfate 2 puff 04/28/18 21:40 05/05/18 21:12 Ventolin Hfa Inhaler - IH 2 puff Q4H PRN Administration SHORT OF BREATH/WHEEZING Amlodipine Besylate 5 mg 04/29/18 10:00 05/06/18 10:11 Norvasc - PO 5 mg DAILY ELVIA Administration Clotrimazole 1 applic 04/29/18 22:00 05/06/18 10:14 Lotrisone Cream (Small Tube) TP 1 applic BID ELVIA Administration Cyanocobalamin 1,000 mcg 04/29/18 10:00 05/06/18 10:13 Vitamin B12 - PO 1,000 mcg DAILY ELVIA Administration Eucalyptus/Menthol/Phenol/Sorbitol 1 each 04/28/18 21:41 Cepastat Lozenge - MM Q4H PRN SORE THROAT Gabapentin 600 mg 04/28/18 22:00 05/06/18 06:09 Neurontin - PO 600 mg TID ELVIA Administration Guaifenesin 10 ml 04/28/18 21:41 Robitussin Dm - PO Q6H PRN COUGH Hydrocortisone 1 applic 04/29/18 22:00 05/05/18 21:14 Anusol 2.5% Hc Cream - [place] 1 applic HS ELVIA Administration Ibuprofen 400 mg 04/28/18 21:41 05/05/18 21:13 Motrin - PO 400 mg Q6H PRN Administration Pain Level 4-6 Loperamide HCl 4 mg 04/28/18 21:41 04/30/18 16:40 Imodium - PO 4 mg Q6H PRN Administration DIARRHEA Magnesium Citrate 300 ml 04/28/18 21:41 Citroma - PO Q48H PRN CONSTIPATION Magnesium Hydroxide 30 ml 04/28/18 21:41 Milk Of Magnesia - PO DAILY PRN CONSTIPATION Melatonin 5 mg 04/28/18 22:00 Melatonin PO HS PRN INSOMNIA Potassium Chloride 20 meq 04/29/18 10:00 05/06/18 10:11 K-Dur - PO 20 meq DAILY ELVIA Administration Prazosin HCl 2 mg 04/28/18 22:00 05/05/18 21:12 Minipress - PO 2 mg HS ELVIA Administration Multivit/Folic Acid/Iron 1 tab 04/29/18 10:00 05/06/18 10:11 Vitamins (Sjr) - PO 1 tab DAILY ELVIA Administration Pseudoephedrine/Triprolidine 1 combo 04/28/18 21:41 Actifed - PO Q8H PRN NASAL CONGESTION Quetiapine Fumarate 400 mg 04/30/18 22:00 05/05/18 21:11 Seroquel - PO 400 mg HS ELVIA Administration Sertraline HCl 100 mg 04/29/18 10:00 05/06/18 10:11 Zoloft - PO 100 mg DAILY ELVIA Administration Thiamine HCl 100 mg 04/28/18 22:00 05/05/18 21:11 Vitamin B1 - PO 100 mg HS ELVIA Administration Current Side Effect: No Lab tests ordered: Yes Lab tests reviewed: Yes Provider note:: Patient will complete this program on 05/07/18. He has met his treatment goals and will continue to address his issues in outpatient treatment at [facility]. Told movie writer that from his participation in this program, he has learned the importance of adherence to treatment in order to maitain sobriety. He responded well to Seroquel 400 mg po HS, Prazosin 2 mg po HS and Zoloft 100 mg po daily. Scripts for 30 days supply of these medications will be electronicallyv transmitted to [facility] at [address] [place] [address]. He is stable for discharge on 05/07/18 Total face to face time:: 35 Mental Status Exam - Mental Status Exam Alert and Oriented to: Time, Place, Person Cognitive Function: Fair Patient Appearance: Well Groomed Affect: Appropriate Patient Behavior: Cooperative Speech Pattern: Clear Voice Loudness: Normal Thought Disorder: Not Present Hallucinations: Denies Suicidal Ideation: Denies Homicidal Ideation: Denies Insight/Judgement: Fair Sleep: Fair Appetite: Good Muscle strength/Tone: Normal Gait/Station: Normal Psychiatric Treatment Plan - Problem List (1) Alcohol dependence Current Visit: Yes (2) Bipolar disorder Current Visit: No Comment: Reported by the patient. (3) Alcohol-induced mood disorder Current Visit: Yes (4) Alcohol-induced sleep disorder Current Visit: Yes Initial treatment plan: Patient will be discharged tomorrow and referred to [facility] for outpatient treatment
[2018-05-06] MEDS: QUEtiapine FUMARATE 400 MG TABLET PO SCH (21:07)
[2018-05-06] MEDS: THIAMINE HCL 100 MG TABLET (FP) PO SCH (21:07)
[2018-05-06] MEDS: PRAZOSIN HCL 1 MG CAPSULE PO SCH (21:08)
[2018-05-06] MEDS: HYDROCORTISONE 2.5% TOPICAL CREAM 30 GM TUBE PR SCH (21:09)
[2018-05-07] MEDS: GABAPENTIN 300 MG CAPSULE (FP) PO SCH (06:32)
[2018-05-07] MEDS: ACETAMINOPHEN 325 MG TABLET (FP) PO PRN (06:33)
[2018-05-07 06:54] VITALS: TEMP 98.3
[2018-05-07] MEDS: SERTRALINE HCL 50 MG TABLET (FP) PO SCH (10:20)
[2018-05-07] MEDS: CLOTRIMAZOLE/BETAMET DIPROP 15 GM TUBE TP SCH (10:20)
[2018-05-07] MEDS: POTASSIUM CHLORIDE TABS 20 MEQ TABLET.ER (FP) PO SCH (10:20)
[2018-05-07] MEDS: PRENATAL VITAMINS W/ FOLIC ACID TABLET (FP) PO SCH (10:20)
[2018-05-07] MEDS: amLODIPine BESYLATE 5 MG TABLET (FP) PO SCH (10:20)
[2018-05-07] MEDS: LOPERAMIDE HCL 2 MG CAPSULE PO PRN (10:22)
[2018-05-07] MEDS: CYANOCOBALAMIN 1,000 MCG TABLET (FP) PO SCH (10:22)
[2018-05-07 12:28] VITALS: BP 133/79; PULSE 85
== END 2018-05-07 13:40 | disposition home or self-care (01) | DRG 772 ==
LOC: YASAS 15:24 → Y5N 15:25
PROVIDERS: ADMIT Psychiatry & Neurology Psychiatry; ATTEND Psychiatry & Neurology Psychiatry
PROC: HZ42ZZZ Group Counseling for Substance Abuse Treatment, Cognitive-Behavioral (ICD-10-PCS; principal; 2018-04-28)
DX: F10.24 Alcohol dependence with alcohol-induced mood disorder (principal); F10.282 Alcohol dependence with alcohol-induced sleep disorder; F31.9 Bipolar disorder, unspecified; I10 Essential (primary) hypertension; G47.00 Insomnia, unspecified; R21 Rash and other nonspecific skin eruption; K74.60 Unspecified cirrhosis of liver; J45.909 Unspecified asthma, uncomplicated; M13.862 Other specified arthritis, left knee; M13.861 Other specified arthritis, right knee; Z88.6 Allergy status to analgesic agent; Z86.69 Personal history of other diseases of the nervous system and sense organs

== ENCOUNTER 2018-12-25 12:07 | Inpatient (IN) | payer OTHER ==
[2018-12-25 12:35] VITALS: BMI 36.4
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
[2018-12-25] MEDS ORDERED: ALBUTEROL SO4 0.083% IH SOL 2.5 MG/3 ML VIAL.NEB. NEB PRN (14:38)
[2018-12-25] MEDS ORDERED: LORazepam 1 MG TABLET PO PRN (14:50)
[2018-12-25] MEDS ORDERED: MELATONIN 5 MG TABLETS PO PRN (14:51)
[2018-12-25] MEDS ORDERED: MAG HYDROX/AL HYDROX/SIMETH 30 ML UNIT-DOSE CUP PO PRN (14:51)
[2018-12-25] MEDS ORDERED: IBUPROFEN 400 MG TABLET (FP) PO PRN (14:51)
[2018-12-25] MEDS ORDERED: MAGNESIUM CITRATE 300 ML BOTTLE PO PRN (14:51)
[2018-12-25] MEDS ORDERED: MAGNESIUM HYDROX 2400MG/30ML ORAL SUSPENSION 30 ML CUP PO PRN (14:51)
[2018-12-25] MEDS ORDERED: BISMUTH SUBSALICYLATE 524 MG/30 ML UD PO PRN (14:51)
[2018-12-25] MEDS ORDERED: hydrOXYzine PAMOATE 25 MG CAPSULE (FP) PO PRN (14:51)
[2018-12-25] MEDS ORDERED: MENTHOL/PHENOL 1 EACH UD MM PRN (14:51)
[2018-12-25] MEDS ORDERED: ACETAMINOPHEN 325 MG TABLET (FP) PO PRN ×2 (14:51)
[2018-12-25] MEDS ORDERED: METHOCARBAMOL 500 MG TABLET PO PRN (14:51)
--- NOTE | 2018-12-25 15:09 | PN ---
Teaching Attending Note Name of Resident: Halley Wells ATTENDING PHYSICIAN STATEMENT I saw and evaluated the patient. I reviewed the resident's note and discussed the case with the resident. I agree with the resident's findings and plan as documented. SUBJECTIVE: [facility] OBJECTIVE: Patient had some fall and contusion to head without CT scan ASSESSMENT AND PLAN: Admit to detox and will do neuro checks for at least first 24 hours.
[2018-12-25] MEDS: LORazepam 2 MG TABLET PO SCH ×2 (17:36→22:02)
[2018-12-25] MEDS ORDERED: THIAMINE HCL 100 MG TABLET (FP) PO SCH (22:00)
[2018-12-25] MEDS ORDERED: PRAZOSIN HCL 1 MG CAPSULE PO SCH (22:00)
[2018-12-26] MEDS: LORazepam 2 MG TABLET PO SCH ×2 (05:14→10:13)
[2018-12-26] MEDS ORDERED: amLODIPine BESYLATE 5 MG TABLET (FP) PO SCH (10:00)
[2018-12-26] MEDS ORDERED: PRENATAL VITAMINS W/ FOLIC ACID TABLET (FP) PO SCH (10:00)
--- NOTE | 2018-12-26 10:19 | PN ---
S CIWA - CIWA Score Nausea/Vomitin-No Nausea/No Vomiting Muscle Tremors: 3 Anxiety: 3 Agitation: 0-Normal Activity Paroxysmal Sweats: 3 Orientation: 0-Oriented Tacttile Disturbances: 0-None Auditory Disturbances: 0-None Visual Disturbances: 0-None Headache: 2-Mild CIWA-Ar Total Score: 11 [facility] Progress Note (SOAP) Subjective: c/o sweats, shakes, anxiety, and headache. Objective: 12/26/18 10:19 Vital Signs 12/26/18 12/26/18 12/26/18 03:30 06:26 06:30 Temperature 98.3 F Pulse Rate 59 L Respiratory 18 16 18 Rate Blood Pressure 132/69 12/26/18 09:51 Temperature 97.5 F L Pulse Rate 64 Respiratory 18 Rate Blood Pressure 140/86 Assessment: 12/26/18 10:20 AOX3, in no acute respiratory distress Full ROM, ambulating in the unit. withdrawal symptoms. 12/26/18 10:20 Plan: continue detox.
[2018-12-26 12:53] LABS: HEMATOCRIT 37.2 % (35.4-49); HEMOGLOBIN 12.9 GM/dL (11.7-16.9); MCH 30.9 pg (25.7-33.7); MCHC 34.8 g/dl (32.0-35.9); MEAN CELL VOLUME 88.6 fl (80-96); MEAN PLT VOLUME 8.2 fl (7.5-11.1); PLATELET COUNT 74 K/MM3 (134-434); RBC 4.19 M/mm3 (4.00-5.60); RDW 17.1 % (11.9-15.9); WHITE BLOOD COUNT 2.9 K/mm3 (4.0-10.0)
[2018-12-26 12:56] LABS: ALBUMIN 3.5 g/dl (3.4-5.0); BILIRUBIN,TOTAL 1.4 mg/dL (0.2-1); BLOOD UREA NITROGEN 6.1 mg/dL (7-18); CALCIUM 8.3 mg/dL (8.5-10.1); CREATININE 0.5 mg/dL (0.55-1.3); POTASSIUM 3.4 mmol/L (3.5-5.1); TOT PROT 6.9 g/dl (6.4-8.2)
--- NOTE | 2018-12-26 13:21 | CONSULT ---
[facility] Psychiatric Consult - Data Date of interview: 12/26/18 Admission source: [facility] Identifying data: Approached by psychiatrist for psychiatric interview. " I am fine. I am leaving." Mr Esteves declines psychiatric evaluation. Witnessed by staff.
[2018-12-26 13:52] VITALS: BP 136/85; PULSE 68; TEMP 97.8
--- NOTE | 2018-12-26 15:07 | DS ---
[facility] Detox Discharge Summary Admission Date: 12/25/18 Discharge Date: 12/26/18 (left AMA) - History Present History: Alcohol Dependence Additional Comments: I was informed by the RN that pt wants to leave. As per RN, pt gave no reason why he wants to leave. Pt did not wait for the REFINERY TECHNICIAN to talk to him. As per RN attempt to let pt stay and complete his detox protocol failed. As per counselor' s notes, "Patient was met by this automotive service writer to discuss his aftecare plans and treatment options. Patient speaks little gambian, however reports in gambian that he was going to the [facility] located at [address] [place], [place] [id number] . Patient was also provided with an alternate option for treatment services if needed at the [address] [address] ". Pt still left AMA after the RN explained the importance of staying and completing his detox protocol. Pt is alert and oriented x3 and in no respiratory distress. Pertinent Past History: h/o HTN, DM, asthma, OA, and alcohol use disorder. - Physical Exam Results Vital Signs: Vital Signs Temperature 97.8 F 12/26/18 13:52 Pulse Rate 68 12/26/18 13:52 Respiratory Rate 18 12/26/18 13:52 Blood Pressure 136/85 12/26/18 13:52 O2 Sat by Pulse Oximetry (%) Vital Signs 12/26/18 12/26/18 09:51 13:52 Temperature 97.5 F L 97.8 F Pulse Rate 64 68 Respiratory 18 18 Rate Blood Pressure 140/86 136/85 Lab Results WBC 2.9 K/mm3 (4.0-10.0) L 12/26/18 10:00 RBC 4.19 M/mm3 (4.00-5.60) 12/26/18 10:00 Hgb 12.9 GM/dL (11.7-16.9) 12/26/18 10:00 Hct 37.2 % (35.4-49) 12/26/18 10:00 MCV 88.6 fl (80-96) 12/26/18 10:00 MCHC 34.8 g/dl (32.0-35.9) 12/26/18 10:00 RDW 17.1 % (11.9-15.9) H 12/26/18 10:00 Plt Count 74 K/MM3 (134-434) L 12/26/18 10:00 Sodium 143 mmol/L (136-145) 12/26/18 10:00 Potassium 3.4 mmol/L (3.5-5.1) L 12/26/18 10:00 Chloride 107 mmol/L (98-107) 12/26/18 10:00 Carbon Dioxide 31 mmol/L (21-32) 12/26/18 10:00 Anion Gap 6 MMOL/L (8-16) L 12/26/18 10:00 BUN 6.1 mg/dL (7-18) L 12/26/18 10:00 Creatinine 0.5 mg/dL (0.55-1.3) L 12/26/18 10:00 Random Glucose 97 mg/dL (74-106) 12/26/18 10:00 Calcium 8.3 mg/dL (8.5-10.1) L 12/26/18 10:00 Labs noted. Pertinent Admission Physical Exam Findings: withdrawal symptoms. - Treatment Hospital Course: Detox Protocol Followed - Medication Discharge Medications: Ambulatory Orders Albuterol Sulfate [Proventil HFA Inhaler -] 1 - 2 inh PO QID 04/24/18 Prazosin HCl [Minipress] 2 mg PO HS 04/24/18 Quetiapine Fumarate [Seroquel -] 400 mg PO HS 04/24/18 Sertraline HCl [Zoloft] 100 mg PO DAILY #30 tablet 05/06/18 Amlodipine Besylate 5 mg PO DAILY #30 tablet 05/07/18 Gabapentin [Neurontin] 300 mg PO TID 12/25/18 - Diagnosis (1) Alcohol withdrawal Current Visit: Yes Status: Acute (2) Asthma Current Visit: Yes Status: Chronic Qualifiers: Asthma severity: mild Asthma persistence: intermittent Asthma complication type: with acute exacerbation Qualified Code(s): J45.21 - Mild intermittent asthma with (acute) exacerbation (3) Cirrhosis Current Visit: Yes Status: Chronic (4) HTN (hypertension) Current Visit: Yes Status: Chronic Qualifiers: Hypertension type: essential hypertension Qualified Code(s): I10 - Essential (primary) hypertension (5) Right knee pain Current Visit: Yes Status: Chronic Qualifiers: Chronicity: chronic Qualified Code(s): M25.561 - Pain in right knee; G89.29 - Other chronic pain - AMA Did Patient Leave Against Medical Advice: Yes
[2018-12-27] MEDS ORDERED: LORazepam 1 MG TABLET PO SCH (05:00)
[2018-12-27 12:52] LABS: RPR REACTIVE 1:2 (NONREACTIVE)
[2018-12-27 14:56] LABS: TREPONEMA ANTIBODY REACTIVE (NONREACTIVE)
[2018-12-28] MEDS ORDERED: LORazepam 0.5 MG TABLET PO PRN
[2018-12-28] MEDS ORDERED: LORazepam 0.5 MG TABLET PO SCH (05:00)
[2018-12-29] MEDS ORDERED: LORazepam 0.5 MG TABLET PO ONE (05:00)
== END 2018-12-26 14:15 | disposition left against medical advice (07) | DRG 770 ==
LOC: YASAS 12:07 → Y3N 15:24
PROVIDERS: ADMIT Surgery; ATTEND Surgery
PROC: HZ2ZZZZ Detoxification Services for Substance Abuse Treatment (ICD-10-PCS; principal; 2018-12-25)
DX: F10.230 Alcohol dependence with withdrawal, uncomplicated (principal); F20.9 Schizophrenia, unspecified; F31.9 Bipolar disorder, unspecified; I10 Essential (primary) hypertension; J45.21 Mild intermittent asthma with (acute) exacerbation; K74.60 Unspecified cirrhosis of liver; M25.561 Pain in right knee; G89.29 Other chronic pain; E11.9 Type 2 diabetes mellitus without complications; E66.9 Obesity, unspecified; Z68.36 Body mass index [BMI] 36.0-36.9, adult; Z87.891 Personal history of nicotine dependence; Z86.69 Personal history of other diseases of the nervous system and sense organs; Z88.6 Allergy status to analgesic agent; Z91.5 Personal history of self-harm
CPT/HCPCS: 36415; 80053; 85027; 86480; 86593; 86780

== ENCOUNTER 2019-04-15 19:29 | Emergency (ER) | payer OTHER ==
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
[2019-04-15 20:47] VITALS: BP 121/81; PULSE 82; TEMP 97.7; BMI 30.7
[2019-04-15 21:35] LABS: BASO % 1.2 % (0-2.0); EOS % 1.4 % (0-4.5); HEMATOCRIT 40.8 % (35.4-49); HEMOGLOBIN 13.7 GM/dL (11.7-16.9); LYMPH % 38.8 % (8-40); MCH 28.6 pg (25.7-33.7); MCHC 33.5 g/dl (32.0-35.9); MEAN CELL VOLUME 85.2 fl (80-96); MEAN PLT VOLUME 8.3 fl (7.5-11.1); MONO % 7.6 % (3.8-10.2); PLATELET COUNT 139 K/MM3 (134-434); RBC 4.79 M/mm3 (4.00-5.60); RDW 20.3 % (11.9-15.9); WHITE BLOOD COUNT 7.4 K/mm3 (4.0-10.0)
[2019-04-15 21:43] LABS: INR 1.18 (0.83-1.09)
[2019-04-15 21:46] LABS: ACTIVATED PTT 37.1 SECONDS (25.2-36.5)
[2019-04-15 22:21] LABS: ALBUMIN 3.9 g/dl (3.4-5.0); BILIRUBIN,TOTAL 0.5 mg/dL (0.2-1); CALCIUM 8.5 mg/dL (8.5-10.1); CREATININE 0.6 mg/dL (0.55-1.3); POTASSIUM 3.7 mmol/L (3.5-5.1)
--- NOTE | 2019-04-16 04:16 | PDOC ---
*Physical Exam - Vital Signs Last Vital Signs Temp Pulse Resp BP Pulse Ox 97.7 F 82 19 121/81 97 04/15/19 20:33 04/15/19 20:33 04/15/19 20:33 04/15/19 20:33 04/15/19 20:33 ED Treatment Course - LABORATORY CBC & Chemistry Diagram: 04/15/19 21:06 04/15/19 21:06 - ADDITIONAL ORDERS Additional order review: Laboratory Results 04/16/19 04/15/19 04/15/19 02:20 21:06 21:06 PT with INR INR PTT (Actin FS) Sodium 143 Potassium 3.7 Chloride 108 H Carbon Dioxide 33 H Anion Gap 3 L BUN 13.0 Creatinine 0.6 Est GFR (CKD-EPI)AfAm 127.55 Est GFR (CKD-EPI)NonAf 110.05 Random Glucose 103 Calcium 8.5 Total Bilirubin 0.5 AST 99 H ALT 84 H Alkaline Phosphatase 73 Total Protein 8.0 Albumin 3.9 Alcohol, Quantitative 148.2 H 287.0 H 04/15/19 21:06 PT with INR 14.00 H INR 1.18 H PTT (Actin FS) 37.1 H Sodium Potassium Chloride Carbon Dioxide Anion Gap BUN Creatinine Est GFR (CKD-EPI)AfAm Est GFR (CKD-EPI)NonAf Random Glucose Calcium Total Bilirubin AST ALT Alkaline Phosphatase Total Protein Albumin Alcohol, Quantitative 04/15/19 21:06 RBC 4.79 MCV 85.2 MCHC 33.5 RDW 20.3 H MPV 8.3 Neutrophils % 51.0 Lymphocytes % 38.8 Monocytes % 7.6 Eosinophils % 1.4 Basophils % 1.2 Medical Decision Making - Medical Decision Making 04/16/19 19:39 Pt is an alcoholic; he was signed out to me to be discharged once he is sober; pt surprisingly willing to go to detox; there are beds; repeat ETOH came fown to 140s. Sent to [facility]. Discharge - Discharge Information Problems reviewed: Yes Clinical Impression/Diagnosis: Intoxication Condition: Stable Disposition: HOME - Admission No - Follow up/Referral Referrals: Bianca Lowe MD [Primary Care Provider] - - Patient Discharge Instructions Patient Printed Discharge Instructions: DI for Alcohol Abuse - Post Discharge Activity
--- NOTE | 2019-04-16 14:16 | EKG ---
Test Reason : Blood Pressure : / mmHG Vent. Rate : 081 BPM Atrial Rate : 081 BPM P-R Int : 178 ms QRS Dur : 100 ms QT Int : 386 ms P-R-T Axes : 026 -25 026 degrees QTc Int : 448 ms NORMAL SINUS RHYTHM MINIMAL VOLTAGE CRITERIA FOR LVH, MAY BE NORMAL VARIANT LEFTWARD AXIS WHEN COMPARED WITH ECG OF 24-APR-2018 19:47, FUSION COMPLEXES ARE NO LONGER PRESENT Confirmed by SHARON MORA, ABHISHEK ([id number]) on 04/16/2019 2:16:05 PM Referred By: Confirmed By:ABHISHEK HERRERA MD
== END 2019-04-16 04:40 | disposition home or self-care (01) ==
LOC: JER 19:29
DX: M25.512 Pain in left shoulder (principal); F10.120 Alcohol abuse with intoxication, uncomplicated; Z87.891 Personal history of nicotine dependence; J45.909 Unspecified asthma, uncomplicated; I10 Essential (primary) hypertension; K74.60 Unspecified cirrhosis of liver; Z88.8 Allergy status to other drugs, medicaments and biological substances
CPT/HCPCS: 36415; 80053; 80307; 85025; 85610; 85730; 93005; 93010; 99283-25

== ENCOUNTER 2019-04-16 07:53 | Inpatient (IN) | payer OTHER ==
[2019-04-16 07:59] VITALS: BMI 35.8
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
[2019-04-16] MEDS ORDERED: BISMUTH SUBSALICYLATE 524 MG/30 ML UD PO PRN (08:44)
[2019-04-16] MEDS ORDERED: MAGNESIUM CITRATE 300 ML BOTTLE PO PRN (08:44)
[2019-04-16] MEDS ORDERED: hydrOXYzine PAMOATE 25 MG CAPSULE (FP) PO PRN (08:44)
[2019-04-16] MEDS ORDERED: MENTHOL/PHENOL 1 EACH UD MM PRN (08:44)
[2019-04-16] MEDS ORDERED: IBUPROFEN 400 MG TABLET (FP) PO PRN (08:44)
[2019-04-16] MEDS ORDERED: ACETAMINOPHEN 325 MG TABLET (FP) PO PRN (08:44)
[2019-04-16] MEDS ORDERED: MAG HYDROX/AL HYDROX/SIMETH 30 ML UNIT-DOSE CUP PO PRN (08:44)
[2019-04-16] MEDS ORDERED: MAGNESIUM HYDROX 2400MG/30ML ORAL SUSPENSION 30 ML CUP PO PRN (08:44)
[2019-04-16] MEDS ORDERED: MELATONIN 5 MG TABLETS PO PRN (08:44)
[2019-04-16] MEDS ORDERED: ALBUTEROL SO4 8 GM HFA INHALER IH PRN (08:46)
[2019-04-16] MEDS: METHOCARBAMOL 500 MG TABLET PO PRN ×2 (10:06→17:01)
[2019-04-16] MEDS: LORazepam 2 MG TABLET PO SCH ×3 (10:08→22:00)
[2019-04-16] MEDS: PRENATAL VITAMINS W/ FOLIC ACID TABLET (FP) PO SCH (10:08)
[2019-04-16] MEDS: amLODIPine BESYLATE 5 MG TABLET (FP) PO SCH (10:08)
[2019-04-16] MEDS: GABAPENTIN 300 MG CAPSULE (FP) PO SCH ×2 (13:33→22:00)
[2019-04-16 14:24] LABS: URINE APPEARANCE CLEAR; URINE BILIRUBIN NEGATIVE (NEGATIVE); URINE COLOR YELLOW; URINE GLUCOSE (UA) NEGATIVE (NEGATIVE); URINE KETONE NEGATIVE (NEGATIVE); URINE LEUK ESTERASE NEGATIVE (NEGATIVE); URINE NITRITE NEGATIVE (NEGATIVE); URINE PROTEIN NEGATIVE (NEGATIVE)
[2019-04-16] MEDS: ACETAMINOPHEN 325 MG TABLET (FP) PO PRN (15:09)
[2019-04-16] MEDS: THIAMINE HCL 100 MG TABLET (FP) PO SCH (21:59)
[2019-04-16] MEDS ORDERED: QUEtiapine FUMARATE 100 MG TABLET (FP) PO ONE (22:00)
[2019-04-16] MEDS ORDERED: PRAZOSIN HCL 1 MG CAPSULE PO ONE (22:00)
[2019-04-17] MEDS: LORazepam 2 MG TABLET PO SCH ×4 (05:24→22:05)
[2019-04-17] MEDS: GABAPENTIN 300 MG CAPSULE (FP) PO SCH ×3 (05:25→22:05)
[2019-04-17] MEDS: LORazepam 1 MG TABLET PO PRN (09:02)
[2019-04-17] MEDS: amLODIPine BESYLATE 5 MG TABLET (FP) PO SCH (10:24)
[2019-04-17] MEDS: PRENATAL VITAMINS W/ FOLIC ACID TABLET (FP) PO SCH (10:25)
[2019-04-17 11:00] LABS: ALBUMIN 3.1 g/dl (3.4-5.0); BILIRUBIN,TOTAL 0.6 mg/dL (0.2-1); BLOOD UREA NITROGEN 10.4 mg/dL (7-18); CALCIUM 8.4 mg/dL (8.5-10.1); CREATININE 0.6 mg/dL (0.55-1.3); TOT PROT 6.4 g/dl (6.4-8.2)
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
[2019-04-17 11:08] LABS: HEMATOCRIT 34.2 % (35.4-49); HEMOGLOBIN 11.4 GM/dL (11.7-16.9); MCH 28.3 pg (25.7-33.7); MCHC 33.5 g/dl (32.0-35.9); MEAN CELL VOLUME 84.5 fl (80-96); MEAN PLT VOLUME 9.2 fl (7.5-11.1); RBC 4.04 M/mm3 (4.00-5.60); RDW 19.7 % (11.9-15.9); WHITE BLOOD COUNT 2.5 K/mm3 (4.0-10.0)
[2019-04-17] MEDS ORDERED: POTASSIUM CHLORIDE TABS 20 MEQ TABLET.ER (FP) PO ONE ×2 (11:30→17:00)
[2019-04-17 11:33] LABS: PLATELET COUNT 86 K/MM3 (134-434)
--- NOTE | 2019-04-17 11:35 | PN ---
[facility] CIWA - CIWA Score Nausea/Vomitin-No Nausea/No Vomiting Muscle Tremors: None Anxiety: 3 Agitation: 0-Normal Activity Paroxysmal Sweats: 3 Orientation: 0-Oriented Tacttile Disturbances: 1-Very Mild Itch/Numbness Auditory Disturbances: 0-None Visual Disturbances: 0-None Headache: 2-Mild CIWA-Ar Total Score: 9 S Progress Note (SOAP) Subjective: c/o muscle aches, sweats, interrupted sleep, headache, and anxiety. Objective: 04/17/19 11:28 Vital Signs 04/17/19 04/17/19 04/17/19 03:30 06:29 09:13 Temperature 97.9 F 97.8 F Pulse Rate 70 75 Respiratory 18 18 18 Rate Blood Pressure 127/69 103/60 Laboratory Last Values Sodium 141 mmol/L (136-145) 04/17/19 07:50 Potassium 3.0 mmol/L (3.5-5.1) L 04/17/19 07:50 Chloride 105 mmol/L (98-107) 04/17/19 07:50 Carbon Dioxide 29 mmol/L (21-32) 04/17/19 07:50 Anion Gap 8 MMOL/L (8-16) 04/17/19 07:50 BUN 10.4 mg/dL (7-18) 04/17/19 07:50 Creatinine 0.6 mg/dL (0.55-1.3) 04/17/19 07:50 Est GFR (CKD-EPI)AfAm 127.55 04/17/19 07:50 Est GFR (CKD-EPI)NonAf 110.05 04/17/19 07:50 Random Glucose 154 mg/dL (74-106) H 04/17/19 07:50 Calcium 8.4 mg/dL (8.5-10.1) L 04/17/19 07:50 Total Bilirubin 0.6 mg/dL (0.2-1) 04/17/19 07:50 AST 61 U/L (15-37) H 04/17/19 07:50 ALT 58 U/L (13-61) 04/17/19 07:50 Alkaline Phosphatase 75 U/L (45-117) 04/17/19 07:50 Total Protein 6.4 g/dl (6.4-8.2) 04/17/19 07:50 Albumin 3.1 g/dl (3.4-5.0) L 04/17/19 07:50 Urine Color Yellow 04/16/19 12:20 Urine Appearance Clear 04/16/19 12:20 Urine pH 8.0 (5.0-8.0) 04/16/19 12:20 Ur Specific [place] 1.023 (1.010-1.035) 04/16/19 12:20 Urine Protein Negative (NEGATIVE) 04/16/19 12:20 Urine Glucose (UA) Negative (NEGATIVE) 04/16/19 12:20 Urine Ketones Negative (NEGATIVE) 04/16/19 12:20 Urine Blood Negative (NEGATIVE) 04/16/19 12:20 Urine Nitrite Negative (NEGATIVE) 04/16/19 12:20 Urine Bilirubin Negative (NEGATIVE) 04/16/19 12:20 Urine Urobilinogen 1.0 mg/dL (0.2-1.0) 04/16/19 12:20 Ur Leukocyte Esterase Negative (NEGATIVE) 04/16/19 12:20 Labs noted with low K+ level of 3.0 Assessment: 04/17/19 11:28 AOX3, in no acute respiratory distress. Full ROM, ambulating in the unit. withdrawal symptoms. Hypokalemia. Plan: continue detox. Give potassium chloride 40meq po x2 doses 4hra apart. Repeat K+level in AM.
[2019-04-17] MEDS: ACETAMINOPHEN 325 MG TABLET (FP) PO PRN (17:33)
[2019-04-17] MEDS: QUEtiapine FUMARATE 200 MG TABLET PO SCH (22:05)
[2019-04-17] MEDS: THIAMINE HCL 100 MG TABLET (FP) PO SCH (22:05)
[2019-04-17] MEDS: PRAZOSIN HCL 1 MG CAPSULE PO SCH (22:05)
[2019-04-18] MEDS: LORazepam 1 MG TABLET PO SCH ×4 (05:12→22:03)
[2019-04-18] MEDS: GABAPENTIN 300 MG CAPSULE (FP) PO SCH ×3 (05:12→22:02)
[2019-04-18] MEDS: LORazepam 1 MG TABLET PO PRN (08:39)
[2019-04-18] MEDS ORDERED: SERTRALINE HCL 50 MG TABLET (FP) PO SCH (10:00)
[2019-04-18] MEDS: amLODIPine BESYLATE 5 MG TABLET (FP) PO SCH (10:06)
[2019-04-18] MEDS: PRENATAL VITAMINS W/ FOLIC ACID TABLET (FP) PO SCH (10:06)
[2019-04-18] MEDS: ACETAMINOPHEN 325 MG TABLET (FP) PO PRN ×2 (10:08→17:21)
--- NOTE | 2019-04-18 10:22 | PN ---
[facility] CIWA - CIWA Score Nausea/Vomitin-No Nausea/No Vomiting Muscle Tremors: 2 Anxiety: 2 Agitation: 1-Slight > Activity Paroxysmal Sweats: 1-Minimal Palms Moist Orientation: 0-Oriented Tacttile Disturbances: 0-None Auditory Disturbances: 0-None Visual Disturbances: 0-None Headache: 0-None Present CIWA-Ar Total Score: 6 [facility] Progress Note (SOAP) Subjective: 58 years old male admitted on 04/16/19 for alcohol withdrawal sx management treated with ativan detox regimen encourage the patient to attend meetings and groups Objective: 04/18/19 10:23 Vital Signs Temperature 99.2 F 04/18/19 09:16 Pulse Rate 92 H 04/18/19 09:16 Respiratory Rate 20 04/18/19 09:16 Blood Pressure 130/79 04/18/19 09:16 O2 Sat by Pulse Oximetry (%) Laboratory Last Values WBC 2.5 K/mm3 (4.0-10.0) L 04/17/19 07:50 RBC 4.04 M/mm3 (4.00-5.60) 04/17/19 07:50 Hgb 11.4 GM/dL (11.7-16.9) L 04/17/19 07:50 Hct 34.2 % (35.4-49) L D 04/17/19 07:50 MCV 84.5 fl (80-96) 04/17/19 07:50 MCH 28.3 pg (25.7-33.7) 04/17/19 07:50 MCHC 33.5 g/dl (32.0-35.9) 04/17/19 07:50 RDW 19.7 % (11.9-15.9) H 04/17/19 07:50 Plt Count 86 K/MM3 (134-434) L D 04/17/19 07:50 MPV 9.2 fl (7.5-11.1) D 04/17/19 07:50 Sodium 141 mmol/L (136-145) 04/17/19 07:50 Potassium 3.0 mmol/L (3.5-5.1) L 04/17/19 07:50 Chloride 105 mmol/L (98-107) 04/17/19 07:50 Carbon Dioxide 29 mmol/L (21-32) 04/17/19 07:50 Anion Gap 8 MMOL/L (8-16) 04/17/19 07:50 BUN 10.4 mg/dL (7-18) 04/17/19 07:50 Creatinine 0.6 mg/dL (0.55-1.3) 04/17/19 07:50 Est GFR (CKD-EPI)AfAm 127.55 04/17/19 07:50 Est GFR (CKD-EPI)NonAf 110.05 04/17/19 07:50 Random Glucose 154 mg/dL (74-106) H 04/17/19 07:50 Calcium 8.4 mg/dL (8.5-10.1) L 04/17/19 07:50 Total Bilirubin 0.6 mg/dL (0.2-1) 04/17/19 07:50 AST 61 U/L (15-37) H 04/17/19 07:50 ALT 58 U/L (13-61) 04/17/19 07:50 Alkaline Phosphatase 75 U/L (45-117) 04/17/19 07:50 Total Protein 6.4 g/dl (6.4-8.2) 04/17/19 07:50 Albumin 3.1 g/dl (3.4-5.0) L 04/17/19 07:50 Urine Color Yellow 04/16/19 12:20 Urine Appearance Clear 04/16/19 12:20 Urine pH 8.0 (5.0-8.0) 04/16/19 12:20 Ur Specific [place] 1.023 (1.010-1.035) 04/16/19 12:20 Urine Protein Negative (NEGATIVE) 04/16/19 12:20 Urine Glucose (UA) Negative (NEGATIVE) 04/16/19 12:20 Urine Ketones Negative (NEGATIVE) 04/16/19 12:20 Urine Blood Negative (NEGATIVE) 04/16/19 12:20 Urine Nitrite Negative (NEGATIVE) 04/16/19 12:20 Urine Bilirubin Negative (NEGATIVE) 04/16/19 12:20 Urine Urobilinogen 1.0 mg/dL (0.2-1.0) 04/16/19 12:20 Ur Leukocyte Esterase Negative (NEGATIVE) 04/16/19 12:20 04/18/19 10:26 lab noted long history of low wbc patient is asymptomatic low plt hold motrin low K+ received K+ supplement 40 meq yesterday repeat K+ pending patient will follow up with his provider in the community for low wbc and glucose elevation Assessment: 04/18/19 10:29 alcohol withdrawal sx Plan: continue ativan detox regimen
[2019-04-18] MEDS: POTASSIUM CHLORIDE ORAL LIQUID 20 MEQ/15 ML PO SCH ×2 (11:02→22:02)
[2019-04-18] MEDS: METHOCARBAMOL 500 MG TABLET PO PRN ×2 (15:16→22:02)
[2019-04-18] MEDS: QUEtiapine FUMARATE 200 MG TABLET PO SCH (22:02)
[2019-04-18] MEDS: THIAMINE HCL 100 MG TABLET (FP) PO SCH (22:02)
[2019-04-18] MEDS: PRAZOSIN HCL 1 MG CAPSULE PO SCH (22:04)
[2019-04-19] MEDS ORDERED: LORazepam 0.5 MG TABLET PO PRN
[2019-04-19] MEDS ORDERED: LORazepam 0.5 MG TABLET PO SCH (05:00)
[2019-04-19] MEDS: METHOCARBAMOL 500 MG TABLET PO PRN (06:09)
[2019-04-19] MEDS: GABAPENTIN 300 MG CAPSULE (FP) PO SCH (06:09)
--- NOTE | 2019-04-19 08:52 | DS ---
[facility] Detox Discharge Summary Admission Date: 04/16/19 Discharge Date: 04/19/19 - History Present History: Alcohol Dependence Additional Comments: 58 years old male admitted on 04/16/19 for alcohol withdrawal sx management treated with ativan detox regimen patient is alert oriented x 3 cardiac s1s2 regular rate rhythm respiratory clear lung bilaterally on auscultation abdomen soft round obese no rebound tenderness - Physical Exam Results Vital Signs: Vital Signs Temperature 97.2 F L 04/19/19 07:22 Pulse Rate 72 04/19/19 07:22 Respiratory Rate 18 04/19/19 07:22 Blood Pressure 115/70 04/19/19 07:22 O2 Sat by Pulse Oximetry (%) Pertinent Admission Physical Exam Findings: alcohol withdrawal sx Laboratory Last Values WBC 2.5 K/mm3 (4.0-10.0) L 04/17/19 07:50 RBC 4.04 M/mm3 (4.00-5.60) 04/17/19 07:50 Hgb 11.4 GM/dL (11.7-16.9) L 04/17/19 07:50 Hct 34.2 % (35.4-49) L D 04/17/19 07:50 MCV 84.5 fl (80-96) 04/17/19 07:50 MCH 28.3 pg (25.7-33.7) 04/17/19 07:50 MCHC 33.5 g/dl (32.0-35.9) 04/17/19 07:50 RDW 19.7 % (11.9-15.9) H 04/17/19 07:50 Plt Count 86 K/MM3 (134-434) L D 04/17/19 07:50 MPV 9.2 fl (7.5-11.1) D 04/17/19 07:50 Sodium 141 mmol/L (136-145) 04/17/19 07:50 Potassium 3.2 mmol/L (3.5-5.1) L 04/18/19 07:50 Chloride 105 mmol/L (98-107) 04/17/19 07:50 Carbon Dioxide 29 mmol/L (21-32) 04/17/19 07:50 Anion Gap 8 MMOL/L (8-16) 04/17/19 07:50 BUN 10.4 mg/dL (7-18) 04/17/19 07:50 Creatinine 0.6 mg/dL (0.55-1.3) 04/17/19 07:50 Est GFR (CKD-EPI)AfAm 127.55 04/17/19 07:50 Est GFR (CKD-EPI)NonAf 110.05 04/17/19 07:50 Random Glucose 154 mg/dL (74-106) H 04/17/19 07:50 Calcium 8.4 mg/dL (8.5-10.1) L 04/17/19 07:50 Total Bilirubin 0.6 mg/dL (0.2-1) 04/17/19 07:50 AST 61 U/L (15-37) H 04/17/19 07:50 ALT 58 U/L (13-61) 04/17/19 07:50 Alkaline Phosphatase 75 U/L (45-117) 04/17/19 07:50 Total Protein 6.4 g/dl (6.4-8.2) 04/17/19 07:50 Albumin 3.1 g/dl (3.4-5.0) L 04/17/19 07:50 Urine Color Yellow 04/16/19 12:20 Urine Appearance Clear 04/16/19 12:20 Urine pH 8.0 (5.0-8.0) 04/16/19 12:20 Ur Specific [place] 1.023 (1.010-1.035) 04/16/19 12:20 Urine Protein Negative (NEGATIVE) 04/16/19 12:20 Urine Glucose (UA) Negative (NEGATIVE) 04/16/19 12:20 Urine Ketones Negative (NEGATIVE) 04/16/19 12:20 Urine Blood Negative (NEGATIVE) 04/16/19 12:20 Urine Nitrite Negative (NEGATIVE) 04/16/19 12:20 Urine Bilirubin Negative (NEGATIVE) 04/16/19 12:20 Urine Urobilinogen 1.0 mg/dL (0.2-1.0) 04/16/19 12:20 Ur Leukocyte Esterase Negative (NEGATIVE) 04/16/19 12:20 lab noted low plt --- no motrin low wbc --- chronic low wbc --- asymptomatic ---- patient agrees to bring in lab report follow [facility] with [facility] care provider glucose elevation --- encourage weight loss - Treatment Hospital Course: Detox Protocol Followed, Detoxed Safely, Responded well, Discharged Condition Good, Rehab Referral Accepted Patient has Accepted a Rehab Referral to: [facility] - Medication Discharge Medications: Ambulatory Orders Albuterol Sulfate [Proventil HFA Inhaler -] 1 - 2 inh PO QID 04/24/18 Prazosin HCl [Minipress] 2 mg PO HS 04/24/18 Quetiapine Fumarate [Seroquel -] 400 mg PO HS 04/24/18 Sertraline HCl [Zoloft] 100 mg PO DAILY #30 tablet 05/06/18 Amlodipine Besylate 5 mg PO DAILY #30 tablet 05/07/18 Gabapentin [Neurontin] 300 mg PO TID 12/25/18 - Diagnosis (1) Alcohol dependence with uncomplicated withdrawal Status: Acute (2) Asthma Status: Chronic Qualifiers: Asthma severity: mild Asthma persistence: intermittent Asthma complication type: with status asthmaticus Qualified Code(s): J45.22 - Mild intermittent asthma with status asthmaticus (3) Cirrhosis Status: Chronic Qualifiers: Hepatic cirrhosis type: alcoholic cirrhosis Ascites presence: unspecified Qualified Code(s): K70.30 - Alcoholic cirrhosis of liver without ascites (4) HTN (hypertension) Status: Chronic Qualifiers: Hypertension type: essential hypertension Qualified Code(s): I10 - Essential (primary) hypertension (5) Obesity Status: Chronic Qualifiers: Obesity type: due to excess calories Body mass index: unspecified BMI (6) Substance induced mood disorder Status: Suspected - AMA Did Patient Leave Against Medical Advice: No CIWA Score - CIWA Score Nausea/Vomitin-Mild Nausea/No Vomiting Muscle Tremors: 1-None Visible, but [place] Anxiety: 1-Mildly Anxious Agitation: 1-Slight > Activity Paroxysmal Sweats: No Perspiration Orientation: 0-Oriented Tacttile Disturbances: 0-None Auditory Disturbances: 0-None Visual Disturbances: 0-None Headache: 1-Very Mild CIWA-Ar Total Score: 5
[2019-04-19 09:20] VITALS: BP 137/79; PULSE 93; TEMP 98.3
--- NOTE | 2019-04-19 15:03 | PN ---
[facility] Progress Note Note: Psychiatry Attending's note (follow-up) : Just informed of patient's discharge. No scripts necessary from [facility]. Mr Danielito has scripts from [facility]. Still available for pick-up at [facility].
[2019-04-20] MEDS ORDERED: LORazepam 0.5 MG TABLET PO ONE (05:00)
[2019-04-20 15:43] LABS: RPR REACTIVE 1:2 (NONREACTIVE)
[2019-04-20 15:46] LABS: TREPONEMA ANTIBODY PREVIOUSLY REACTIVE (NONREACTIVE)
== END 2019-04-19 09:35 | disposition home or self-care (01) | DRG 775 ==
LOC: YASAS 07:53 → Y3N 08:31
PROVIDERS: ADMIT Allergy & Immunology; ATTEND Allergy & Immunology
PROC: HZ2ZZZZ Detoxification Services for Substance Abuse Treatment (ICD-10-PCS; principal; 2019-04-16)
DX: F10.230 Alcohol dependence with withdrawal, uncomplicated (principal); F19.24 Other psychoactive substance dependence with psychoactive substance-induced mood disorder; F31.9 Bipolar disorder, unspecified; F25.9 Schizoaffective disorder, unspecified; E87.6 Hypokalemia; E86.0 Dehydration; D72.819 Decreased white blood cell count, unspecified; I10 Essential (primary) hypertension; J45.20 Mild intermittent asthma, uncomplicated; K74.60 Unspecified cirrhosis of liver; M17.0 Bilateral primary osteoarthritis of knee; E66.9 Obesity, unspecified; Z68.35 Body mass index [BMI] 35.0-35.9, adult; Z86.69 Personal history of other diseases of the nervous system and sense organs; Z88.6 Allergy status to analgesic agent; Z91.5 Personal history of self-harm; Z59.0 Homelessness; Z91.19 Patient's noncompliance with other medical treatment and regimen
CPT/HCPCS: 36415; 80053; 81003; 84132; 85027; 86593; 86780

== ENCOUNTER 2019-11-01 11:36 | Inpatient (IN) | payer OTHER ==
[2019-11-01 15:08] VITALS: BMI 32.8
[2019-11-01] MEDS ORDERED: ACETAMINOPHEN 325 MG TABLET (FP) PO PRN ×2 (15:37)
[2019-11-01] MEDS ORDERED: MAGNESIUM HYDROX 2400MG/30ML ORAL SUSPENSION 30 ML CUP PO PRN (15:37)
[2019-11-01] MEDS ORDERED: MAGNESIUM CITRATE 300 ML BOTTLE PO PRN (15:37)
[2019-11-01] MEDS ORDERED: MAG HYDROX/AL HYDROX/SIMETH 30 ML UNIT-DOSE CUP PO PRN (15:37)
[2019-11-01] MEDS ORDERED: ONDANSETRON *ODT* 4 MG TABLET SL ONE (15:37)
[2019-11-01] MEDS ORDERED: BISMUTH SUBSALICYLATE 524 MG/30 ML UD PO PRN (15:37)
[2019-11-01] MEDS ORDERED: MENTHOL/PHENOL 1 EACH UD MM PRN (15:37)
[2019-11-01] MEDS ORDERED: chlordiazePOXIDE HCL 25 MG CAPSULE PO PRN (15:37)
[2019-11-01] MEDS ORDERED: ALBUTEROL SO4 HFA INHALER IH PRN (15:44)
[2019-11-01] MEDS ORDERED: TUBERCULIN PPD 5 TU/0.1ML VIAL ID ONE ×2 (16:54→23:49)
[2019-11-01] MEDS: metFORMIN HCL 500 MG TABLET (FP) PO SCH (17:06)
[2019-11-01] MEDS: IBUPROFEN 400 MG TABLET (FP) PO PRN (17:07)
[2019-11-01] MEDS: hydrOXYzine PAMOATE 25 MG CAPSULE (FP) PO SCH ×2 (17:10→22:03)
[2019-11-01] MEDS: MELATONIN 5 MG TABLETS PO SCH (22:03)
[2019-11-01] MEDS: THIAMINE HCL 100 MG TABLET (FP) PO SCH (22:03)
[2019-11-01] MEDS: METHOCARBAMOL 500 MG TABLET PO PRN (22:03)
[2019-11-01] MEDS: GABAPENTIN 300 MG CAPSULE PO SCH (22:03)
[2019-11-01] MEDS: chlordiazePOXIDE HCL 25 MG CAPSULE PO SCH (22:04)
[2019-11-02] MEDS: GABAPENTIN 300 MG CAPSULE PO SCH ×3 (06:16→22:04)
[2019-11-02] MEDS: chlordiazePOXIDE HCL 25 MG CAPSULE PO SCH ×4 (06:16→22:05)
[2019-11-02] MEDS: hydrOXYzine PAMOATE 25 MG CAPSULE (FP) PO SCH ×5 (06:17→22:04)
[2019-11-02] MEDS: metFORMIN HCL 500 MG TABLET (FP) PO SCH ×2 (06:22→17:14)
[2019-11-02 10:07] LABS: HEMATOCRIT 35.9 % (35.4-49); HEMOGLOBIN 12.1 GM/dL (11.7-16.9); MCHC 33.7 g/dl (32.0-35.9); MEAN CELL VOLUME 86.1 fl (80-96); MEAN PLT VOLUME 8.7 fl (7.5-11.1); PLATELET COUNT 51 K/MM3 (134-434); RBC 4.17 M/mm3 (4.00-5.60); RDW 19.2 % (11.9-15.9)
[2019-11-02] MEDS: METHOCARBAMOL 500 MG TABLET PO PRN ×2 (10:09→17:14)
[2019-11-02] MEDS: amLODIPine BESYLATE 5 MG TABLET (FP) PO SCH (10:09)
[2019-11-02] MEDS: PRENATAL VITAMINS W/ FOLIC ACID TABLET (FP) PO SCH (10:09)
[2019-11-02] MEDS: IBUPROFEN 400 MG TABLET (FP) PO PRN (10:10)
[2019-11-02 10:15] LABS: ALBUMIN 3.3 g/dl (3.4-5.0); BILIRUBIN,TOTAL 1.2 mg/dL (0.2-1); BLOOD UREA NITROGEN 6.8 mg/dL (7-18); CALCIUM 8.3 mg/dL (8.5-10.1); CREATININE 0.5 mg/dL (0.55-1.3); TOT PROT 6.6 g/dl (6.4-8.2)
[2019-11-02 10:28] LABS: PH,URINE 7.5 (5.0-8.0); URINE APPEARANCE CLEAR; URINE BILIRUBIN 1+ (NEGATIVE); URINE COLOR DK YELLOW; URINE GLUCOSE (UA) NEGATIVE (NEGATIVE); URINE KETONE TRACE (NEGATIVE); URINE LEUK ESTERASE NEGATIVE (NEGATIVE); URINE NITRITE NEGATIVE (NEGATIVE); URINE PROTEIN TRACE (NEGATIVE)
[2019-11-02] MEDS ORDERED: POTASSIUM CHLORIDE TABS 20 MEQ TABLET.ER (FP) PO ONE (12:33)
[2019-11-02] MEDS: DOXYCYCLINE HYCLATE 100 MG TABLET PO SCH (17:14)
[2019-11-02] MEDS: THIAMINE HCL 100 MG TABLET (FP) PO SCH (22:04)
[2019-11-02] MEDS: traZODone HCL 100 MG TABLET (FP) PO SCH (22:04)
[2019-11-02] MEDS: PRAZOSIN HCL 1 MG CAPSULE PO SCH (22:04)
[2019-11-02] MEDS: POTASSIUM CHLORIDE TABS 20 MEQ TABLET.ER (FP) PO SCH (22:04)
[2019-11-02] MEDS: QUEtiapine FUMARATE 200 MG TABLET PO SCH (22:04)
[2019-11-02] MEDS: MELATONIN 5 MG TABLETS PO SCH (22:05)
[2019-11-03] MEDS: DOXYCYCLINE HYCLATE 100 MG TABLET PO SCH ×2 (06:01→17:22)
[2019-11-03] MEDS: chlordiazePOXIDE HCL 25 MG CAPSULE PO SCH ×4 (06:01→22:10)
[2019-11-03] MEDS: hydrOXYzine PAMOATE 25 MG CAPSULE (FP) PO SCH ×5 (06:01→22:10)
[2019-11-03] MEDS: GABAPENTIN 300 MG CAPSULE PO SCH ×3 (06:01→22:10)
[2019-11-03] MEDS: metFORMIN HCL 500 MG TABLET (FP) PO SCH ×2 (06:02→17:22)
[2019-11-03] MEDS: POTASSIUM CHLORIDE TABS 20 MEQ TABLET.ER (FP) PO SCH ×2 (10:15→22:10)
[2019-11-03] MEDS: amLODIPine BESYLATE 5 MG TABLET (FP) PO SCH (10:16)
[2019-11-03] MEDS: PRENATAL VITAMINS W/ FOLIC ACID TABLET (FP) PO SCH (10:16)
[2019-11-03] MEDS: IBUPROFEN 400 MG TABLET (FP) PO PRN ×2 (10:17→17:22)
[2019-11-03] MEDS: METHOCARBAMOL 500 MG TABLET PO PRN (14:35)
[2019-11-03] MEDS: PRAZOSIN HCL 1 MG CAPSULE PO SCH (22:10)
[2019-11-03] MEDS: QUEtiapine FUMARATE 200 MG TABLET PO SCH (22:10)
[2019-11-03] MEDS: THIAMINE HCL 100 MG TABLET (FP) PO SCH (22:10)
[2019-11-03] MEDS: traZODone HCL 100 MG TABLET (FP) PO SCH (22:10)
[2019-11-03] MEDS: MELATONIN 5 MG TABLETS PO SCH (22:11)
[2019-11-04] MEDS ORDERED: chlordiazePOXIDE HCL 10 MG CAPSULE PO PRN
[2019-11-04] MEDS: hydrOXYzine PAMOATE 25 MG CAPSULE (FP) PO SCH ×5 (05:02→22:22)
[2019-11-04] MEDS: GABAPENTIN 300 MG CAPSULE PO SCH ×3 (05:02→22:22)
[2019-11-04] MEDS: chlordiazePOXIDE HCL 10 MG CAPSULE PO SCH ×4 (05:03→22:22)
[2019-11-04] MEDS: IBUPROFEN 400 MG TABLET (FP) PO PRN ×2 (05:05→17:55)
[2019-11-04] MEDS: metFORMIN HCL 500 MG TABLET (FP) PO SCH ×2 (06:16→17:54)
[2019-11-04] MEDS: DOXYCYCLINE HYCLATE 100 MG TABLET PO SCH ×2 (06:38→17:54)
[2019-11-04] MEDS: PRENATAL VITAMINS W/ FOLIC ACID TABLET (FP) PO SCH (10:05)
[2019-11-04] MEDS: amLODIPine BESYLATE 5 MG TABLET (FP) PO SCH (10:05)
[2019-11-04] MEDS: POTASSIUM CHLORIDE TABS 20 MEQ TABLET.ER (FP) PO SCH ×2 (10:05→22:22)
[2019-11-04 16:20] LABS: HEMATOCRIT 35.4 % (35.4-49); HEMOGLOBIN 11.8 GM/dL (11.7-16.9); MCH 29.6 pg (25.7-33.7); MCHC 33.2 g/dl (32.0-35.9); MEAN CELL VOLUME 89.1 fl (80-96); MEAN PLT VOLUME 8.9 fl (7.5-11.1); PLATELET COUNT 67 K/MM3 (134-434); RBC 3.98 M/mm3 (4.00-5.60); RDW 19.6 % (11.9-15.9); WHITE BLOOD COUNT 3.3 K/mm3 (4.0-10.0)
[2019-11-04 16:26] LABS: ALBUMIN 3.5 g/dl (3.4-5.0); BILIRUBIN,TOTAL 0.5 mg/dL (0.2-1); BLOOD UREA NITROGEN 9.5 mg/dL (7-18); CALCIUM 9.3 mg/dL (8.5-10.1); CREATININE 0.5 mg/dL (0.55-1.3); POTASSIUM 3.5 mmol/L (3.5-5.1); TOT PROT 6.8 g/dl (6.4-8.2)
[2019-11-04 16:27] LABS: INR 1.08 (0.83-1.09); PROTHROMBIN TIME (PATIENT) 12.7 SEC (9.7-13.0)
[2019-11-04] MEDS: traZODone HCL 100 MG TABLET (FP) PO SCH (22:22)
[2019-11-04] MEDS: PRAZOSIN HCL 1 MG CAPSULE PO SCH (22:22)
[2019-11-04] MEDS: THIAMINE HCL 100 MG TABLET (FP) PO SCH (22:22)
[2019-11-04] MEDS: QUEtiapine FUMARATE 200 MG TABLET PO SCH (22:22)
[2019-11-04] MEDS: MELATONIN 5 MG TABLETS PO SCH (22:23)
[2019-11-04] MEDS: METHOCARBAMOL 500 MG TABLET PO PRN (22:24)
[2019-11-05] MEDS ORDERED: chlordiazePOXIDE HCL 10 MG CAPSULE PO SCH (05:00)
[2019-11-05] MEDS: hydrOXYzine PAMOATE 25 MG CAPSULE (FP) PO SCH ×2 (05:24→09:15)
[2019-11-05] MEDS: DOXYCYCLINE HYCLATE 100 MG TABLET PO SCH (05:25)
[2019-11-05] MEDS: GABAPENTIN 300 MG CAPSULE PO SCH (05:25)
[2019-11-05] MEDS: metFORMIN HCL 500 MG TABLET (FP) PO SCH (06:24)
[2019-11-05] MEDS: IBUPROFEN 400 MG TABLET (FP) PO PRN (08:06)
[2019-11-05 09:14] VITALS: BP 119/78; PULSE 81; TEMP 97.1
[2019-11-05] MEDS: amLODIPine BESYLATE 5 MG TABLET (FP) PO SCH (09:15)
[2019-11-05] MEDS: PRENATAL VITAMINS W/ FOLIC ACID TABLET (FP) PO SCH (09:15)
[2019-11-05] MEDS: POTASSIUM CHLORIDE TABS 20 MEQ TABLET.ER (FP) PO SCH (09:15)
[2019-11-06] MEDS ORDERED: chlordiazePOXIDE HCL 10 MG CAPSULE PO ONE (05:00)
== END 2019-11-05 10:20 | disposition home or self-care (01) | DRG 775 ==
LOC: YASAS 11:36 → Y3E 15:44 → Y3N 16:36 → Y3E 16:54 → Y3N 11-03 11:21
PROVIDERS: ADMIT Allergy & Immunology; ATTEND Allergy & Immunology
PROC: HZ2ZZZZ Detoxification Services for Substance Abuse Treatment (ICD-10-PCS; principal; 2019-11-01)
DX: F10.230 Alcohol dependence with withdrawal, uncomplicated (principal); F31.9 Bipolar disorder, unspecified; F25.9 Schizoaffective disorder, unspecified; G62.9 Polyneuropathy, unspecified; E87.6 Hypokalemia; I10 Essential (primary) hypertension; J45.20 Mild intermittent asthma, uncomplicated; K70.30 Alcoholic cirrhosis of liver without ascites; K00.0 Anodontia; E11.9 Type 2 diabetes mellitus without complications; Z79.84 Long term (current) use of oral hypoglycemic drugs; R55 Syncope and collapse; M17.0 Bilateral primary osteoarthritis of knee; Z20.2 Contact with and (suspected) exposure to infections with a predominantly sexual mode of transmission; E66.9 Obesity, unspecified; Z91.5 Personal history of self-harm; Z68.32 Body mass index [BMI] 32.0-32.9, adult; Z59.0 Homelessness; Z56.0 Unemployment, unspecified
CPT/HCPCS: 36415; 80053; 81003; 82962; 85027; 85610; 86593; 86780; 93005; 93010; Q0162; U0003